=== PATIENT | female | born 1925 | race Caucasian/White ===

== ENCOUNTER 2016-06-12 21:12 | Inpatient (IN) ==
[~2016-06-12 21:12] MED LIST: ETOMIDATE 20 MG/10 ML VIAL IV ONE; ROCURONIUM 100 MG/10 ML VIAL IV ONE; SUCCINYLCHOLINE 200 MG/10 ML VIAL ONE
[2016-06-12] MEDS ORDERED: NOREPINEPHRINE 4 MG/4 ML VIAL IV ONE (21:30)
[2016-06-12] MEDS ORDERED: PANTOPRAZOLE 40 MG VIAL IV STA (21:32)
[2016-06-12] MEDS ORDERED: ONDANSETRON 4 MG/2 ML VIAL IV STA (21:32)
[2016-06-12] MEDS ORDERED: SODIUM CHLORIDE 0.9% 1,000 ML IV STA ×2 (21:32→22:30)
[2016-06-12] MEDS ORDERED: PIPERACILLIN/TAZOBACTAM 3,375 MG in SODIUM CHLORIDE 0.9% 100 ML IV STA (21:32)
[2016-06-12] MEDS: NOREPINEPHRINE 8 MG in SODIUM CHLORIDE 0.9% 242 ML IV SCH (21:38)
[2016-06-12] MEDS ORDERED: PIPERACILLIN/TAZOBACTAM 3,375 MG VIAL IV ONE (21:51)
[2016-06-12] MEDS ORDERED: PANTOPRAZOLE 40 MG VIAL IV ONE (21:52)
[2016-06-12] MEDS ORDERED: ONDANSETRON 4 MG/2 ML VIAL ONE (21:52)
[2016-06-12 22:00] LABS: ABG Base Excess -4.6 MMOL/L (-2.5-2.5); ABG HCO3 20.6 MMOL/L (20-26); ABG Oxygen Saturation 98.9 % (95-100); ABG PCO2 23.2 MM HG (35-48); ABG PH 7.484 (7.35-7.45); ABG TCO2 15.6 MMOL/L (23-27)
--- NOTE | 2016-06-12 22:07 | Emergency Department Note ---
Shruti Lopez Kasabria, am scribing for, and in the presence of, Tomy Hartmann MD 21:46. Shahbaz Lopez Charles R, MD, personally performed the services described in this documentation, ascribed by My Bahena in my presence, and it is both accurate and complete . Arrival - Arrival Chief Complaint: Abdominal / Flank Pain Stated Complaint: ABD pain ED Nursing Triage Note: Patient to room via ems. patient was transfered from [facility] for sepsis. Patient had right hip replacement last week and has been in swingbed at [facility]. Patient was sent to the ER for low blood pressure. Patient has a WBC of 20. Patient is confused. She has had 2000ml of NS and Zosyn 3.375. Mode of Arrival: Stretcher Time Seen by Provider: 06/12/16 21:31 - History of Present Illness HPI Narrative: This is a 89 y/o white female presenting to the ED as a transfer from [facility] for sepsis. Pt was on swing bed care in [place] per family request for a right hip replacement. She was sent from the ED to [facility] for low blood pressure. Pt is disoriented and confused. She has generalized abdominal pain and according to the nursing staff at the ED her last BM was watery and had bright red blood present. Pt has had three "good" bowel movements in which all of them were watery in consistency. Pt denies fever, chills, nausea, vomiting, back pain. The surgery site to her right hip seems to be well healing. Pt has a PMHx consistent with HTN, thyroid disorder, and dyslipidemia. Allergies/Adverse Reactions: Allergies Allergy/AdvReac Type Severity Reaction Status Date / Time codeine Allergy Unknown/Unable Verified 06/12/16 21:23 to obtain meperidine [From Demerol] Allergy Unknown/Unable Verified 06/12/16 21:23 to obtain Home Medications: Home Medications Medication Instructions Recorded Confirmed Type Atorvastatin [Lipitor] 10 mg PO DAILY 06/12/16 06/12/16 History Benazepril [Lotensin] 10 mg PO DAILY 06/12/16 06/12/16 History Fluconazole [Diflucan] 200 mg PO DAILY 06/12/16 06/12/16 History Fondaparinux [Arixtra] 2.5 mg SUBCUT Q24H 06/12/16 06/12/16 History Omeprazole 40 mg PO DAILY 06/12/16 06/12/16 History Review of System - Review of System ROS unobtainable: due to mental status (limited ) 12 point system: reviewed and no additional remarkable complaints except as stated - Review of System Constitutional: Present: other (low blood pressure ). Absent: chills, fever, weakness Eyes: Absent: vision change Head/Ears/Nose/Throat: Absent: nasal drainage Respiratory: Absent: cough Cardiovascular: Absent: chest pain, dyspnea on exertion Gastrointestinal: Present: abdominal pain (generalized ), diarrhea, hematochezia. Absent: nausea, vomiting Skin: Absent: rash Neurological: Present: confusion. Absent: numbness, vertigo Psychiatric: Absent: anxiety Allergic/Immunologic: Absent: facial swelling Medical,Surgical,& Family Hx - Medical History Cardio: History of: Hypertension Endocrine: History of: Dyslipidemia, Thyroid Disorder - Surgical History Orthopedic Surgeries: Surgical HX of;: Total Hip Replacement (last week) - Social History Smoking Status: Never smoker Frequency of Alcohol Use: None Type of Drug Use: None Exam Vital Signs: Vital Signs Temperature 97.7 F 06/12/16 21:13 Pulse Rate 128 H 06/12/16 21:13 Respiratory Rate 24 06/12/16 21:13 Blood Pressure 78/26 06/12/16 21:13 - General General appearance: alert, in no apparent distress, other (toxic; ill appearing ) - Head Head exam: Present: atraumatic, normocephalic, normal inspection - Eye Eye exam: Present: PERRL, EOMI, other (pale conjunctiva ). Absent: normal appearance - ENT ENT exam: Present: normal exam, normal oropharynx, mucous membranes moist, TM's normal bilaterally, normal external ear exam - Neck Neck exam: Present: normal inspection, full ROM, trachea midline. Absent: tenderness - Chest Chest inspection: Present: normal inspection, symmetric chest wall rise. Absent : tenderness - Cardiovascular Cardiovascular exam: Present: tachycardia, normal heart sounds. Absent: regular rate, normal rhythm (irregular beat ) - Abdominal Exam Abdominal exam: Present: soft. Absent: distention, tenderness, normal bowel sounds (high pitched bowel sounds ) - Extremities Exam Extremities exam: Present: normal inspection, full ROM, normal capillary refill , other (spot on the right hip post surgical that is well healing ). Absent: tenderness, pedal edema, calf tenderness - Back Exam Back exam: Present: normal inspection, full ROM. Absent: tenderness - Neurological Exam Neurological exam: Present: alert, CN II-XII intact, normal gait, reflexes normal. Absent: oriented X3 - Psychiatric Psychiatric exam: Present: normal affect, normal mood - Skin Skin exam: Present: warm, dry, intact, normal color. Absent: rash, diaphoresis Course - Consultations Consultation #1: Spoke to Dr. Morales general surgeon nutrition services aide we discussed possibilities of ischemic colitis. We decided that patient should be stabilized in ICU first with antibiotics spoke to Dr. Wynne who will admit the patient to the ICU stabilized patient Time: 22:04 Results - Labs Lab Results: I have reviewed the patients labs Labs: All results from previous facility include CT scan reviewed his results also reviewed with hospitalist and general surgeon Critical Care Time Critical Care Time: Yes Total Critical Care Time: 60 Disposition Clinical Impression: Hypotension, Acute blood loss anemia, GI bleed, Ischemic colitis, Sepsis, Status post ORIF right hip, Confusion, UTI (urinary tract infection) Case discussed with: patient, patient's family Disposition: Still a Patient Condition: Critical Time of Disposition: 22:06
--- NOTE | 2016-06-12 22:07 | EKG Report ---
Stationary ECG Study [facility] ER Test Date: 06/12/2016 10:06:25 PM Pat Name: DAMIEN BRAVO Department: Room: Gender: F Specialist Wound Care: : 1925 Requested by: Tomy Estes Order Number: [id number] Reading MD: MOISES PURVIS Intervals [place] Rate: 122 P: 72 PA: 155 QRS: 83 QRSD: 80 T: 78 QT: 321 QTc: 394 Interpretive Statements SINUS TACHYCARDIA LOW QRS VOLTAGE POSSIBLE ANTERIOR MYOCARDIAL INFARCTION, PROBABLY OLD IF PRESENT Electronically Signed On 06-18-16 10:42:04 CDT by MOISES PURVIS [email or web address]
[2016-06-12] MEDS ORDERED: metroNIDAZOLE INJ 500 MG in PREMIX 1 EACH IV STA (22:09)
[2016-06-12] MEDS ORDERED: VANCOMYCIN INJ 1,000 MG in SODIUM CHLORIDE 0.9% 250 ML IV STA (22:09)
--- NOTE | 2016-06-12 22:14 | XRay Report ---
Portable chest Date: 06/12/2016 Clinical history: Generalized abdominal pain Comparison: None Technique: Portable AP sitting chest Findings: The heart is normal in size with calcification in the aortic knob. Symmetric pleural thickening at the lung apices with atelectasis at the lung bases. Artifactual densities limit evaluation of the left midlung zone. Osteopenia with degenerative changes. Impression: Chronic appearing scarring at the lung apices with atelectasis at the lung bases. Film limited by artifactual densities. Osteopenia. PROCEDURE INTERPRETED AT [facility] DEPARTMENT OF RADIOLOGY Final Report Signed by: Dr. Mary Jc
--- NOTE | 2016-06-12 22:17 | XRay Report ---
Exam: XR abdomen 2V Date: 06/12/2016 9:34 PM Comparison: None Indication: Generalized abdominal pain Technique:[Portable supine and erect abdomen] Findings: Moderate gaseous distention of the colon with increased fecal material. Thickening of the wall of the colon with no free air. Moderate dextroscoliosis with osteopenia, degenerative changes and prior right intertrochanteric femoral fracture with post operative findings. Impression: Increased fecal material especially in the rectal location with associated moderate gaseous distention of the colon with bowel wall thickening. No free air. Osteopenia with scoliosis and prior right intertrochanteric femoral fracture. PROCEDURE INTERPRETED AT [facility] DEPARTMENT OF RADIOLOGY Final Report Signed by: Dr. Mary Jc
--- NOTE | 2016-06-12 22:40 | General Surgery Consult Note ---
Assessment and Plan (1) Toxic megacolon Status: Acute Assessment and plan: This patient is in septic shock and has toxic megacolon from colitis. She has diffuse peritonitis on exam. We will resuscitate her aggressively and I have discussed management options with the patient and the family. I think her only chance of survival is aggressive resuscitation in the operating room tonight for a total abdominal colectomy and end ileostomy. This was discussed in detail with the family and they would like to proceed. We will also place a central line in the ER for aggressive fluid resuscitation monitoring postoperatively. The ER te OR team has been called and will be here shortly. Current Visit: Yes History of Present Illness Chief complaint: Abdominal pain History of present illness: Ms. Garibay is a 89 year old female transferred to [facility] for acute onset of abdominal pain this morning. She has been rehabbing after a right intertrochanteric hip fracture and developed acute abdominal pain with hypotension. She had a lactic acid of 4 and she was in acute renal failure the outside hospital. He was transferred here for management. Her CT scan showed diffuse colitis with basically toxic megacolon. She is on pressors. Home Medications Medication Instructions Recorded Confirmed Type Atorvastatin [Lipitor] 10 mg PO DAILY 06/12/16 06/12/16 History Benazepril [Lotensin] 10 mg PO DAILY 06/12/16 06/12/16 History Fluconazole [Diflucan] 200 mg PO DAILY 06/12/16 06/12/16 History Fondaparinux [Arixtra] 2.5 mg SUBCUT Q24H 06/12/16 06/12/16 History Omeprazole 40 mg PO DAILY 06/12/16 06/12/16 History Allergies Allergy/AdvReac Type Severity Reaction Status Date / Time codeine Allergy Unknown/Unable Verified 06/12/16 21:23 to obtain meperidine [From Demerol] Allergy Unknown/Unable Verified 06/12/16 21:23 to obtain Medical,Surgical,& Family Hx - Medical History Cardio: History of: Hypertension Endocrine: History of: Dyslipidemia, Thyroid Disorder - Surgical History Orthopedic Surgeries: Surgical HX of;: Total Hip Replacement (last week) - Social History Smoking Status: Never smoker Frequency of Alcohol Use: None Type of Drug Use: None - Constitutional Constitutional: Present: as per HPI - EENT Nose, mouth and throat: Present: as per HPI - Cardiovascular Cardiovascular: Present: as per HPI - Respiratory Respiratory: Present: as per HPI - Gastrointestinal Gastrointestinal: Present: as per HPI - Genitourinary Genitourinary: Present: as per HPI - Musculoskeletal Musculoskeletal: Present: as per HPI - Neurological Neurological: Present: as per HPI - Endocrine Endocrine: Present: as per HPI Hematologic/Lymphatic: Present: as per HPI Exam - Constitutional Vitals: Period Temp Pulse Resp BP Sys/Echeverria Pulse Ox Last 24 Hr 97.7 F 128 24 78/26 General appearance: normal weight, no acute distress - Head Head exam: Present: normal inspection, normocephalic - Eye Eye exam: Present: EOMI Pupils: Present: LEON - ENT ENT exam: Present: normal exam Mouth exam: Present: normal external inspection, normal voice - Neck Neck exam: Present: normal inspection, trachea midline - Respiratory Respiratory exam: Present: clear to auscultation bilaterally. Absent: accessory muscle use, chest wall tenderness - Cardiovascular Cardiovascular exam: Present: tachycardia. Absent: irregular rhythm, systolic murmur - GI/Abdominal GI/Abdominal exam: Present: guarding, hypoactive bowel sounds, tenderness, rebound, soft. Absent: distended - Extremities Exam Extremities exam: Present: normal inspection, normal capillary refill - Back Exam Back exam: Present: normal inspection - Neurological Exam Neurological exam: Present: alert, oriented X3 Speech: Present: normal - Skin Skin exam: Present: normal color, warm Quality Measures - VTE Contraindication to Pharmacological VTE Prophylaxis: Coagulopathy Results - Diagnostic Findings Procedure: CT Abdomen and Pelvis: image reviewed by me, report reviewed by me, other (Toxic megacolon with free fluid in the abdomen)
[2016-06-12] MEDS ORDERED: SODIUM CHLORIDE 0.9% 1,800 ML IV ONE (23:04)
[2016-06-12] MEDS ORDERED: ALBUTEROL 2.5 MG/3 ML NEB RESP TX PRN (23:04)
--- NOTE | 2016-06-12 23:10 | Operative Note ---
Date of procedure: 06/12/16 Pre-op diagnosis: Hypotension with inadequate venous access Post-op diagnosis: same Procedure: Preoperative diagnosis Hypotension with inadequate venous access Postoperative diagnosis Same Procedures performed 1. Right internal jugular vein central line placement 2. Ultrasound guidance and interpretation of images Findings Right internal jugular vein was compressible and was accessed on first stick. Venous nonpulsatile blood return was obtained. Ultrasound confirmed venous placement of the wire. The catheter was placed at 15 cm the skin level. Postop chest x-ray showed no pneumothorax with catheter tip in the right atrium. Complications None apparent Specimen None Anesthesia Local 10 cc 1% lidocaine Indications Inadequate venous access with hypotension and sepsis Description of procedure Patient was placed in the Trendelenburg position in her ER bed. The neck was prepped with chlorhexidine and draped sterilely. Timeout was called. Full sterile barrier precautions were used. Ultrasound was used to identify the vascular structures in the right neck in the internal jugular vein is compressible. Local anesthetic was administered and was accessed on first stick with venous nonpulsatile blood return. Wire access was obtained to the internal jugular vein and ultrasound was repeated to confirm venous placement of the wire. The incision along the wire was opened and a dilator was placed along the wire followed by a triple-lumen catheter. The catheter was placed over the wire with a Seldinger technique and advanced 15 cm. It was sewn at the skin level dislocation. All 3 ports returned blood easily and flushed with saline. Sterile dressing was applied with a Biopatch dressing. Chest x-ray revealed good positioning of the tip of the catheter in the right atrium with no pneumothorax present. Postoperative plan to OR Implants: triple lumen catheter Anesthesia: local Surgeon / Physician: Alfonso Morales Specimens: none sent Condition: critical Disposition: no change Discharge Plan - Discharge Data Disposition: Still a Patient - Discharge Medications No Action Benazepril [Lotensin] 10 mg PO DAILY Atorvastatin [Lipitor] 10 mg PO DAILY Fluconazole [Diflucan] 200 mg PO DAILY Omeprazole 40 mg PO DAILY Fondaparinux [Arixtra] 2.5 mg SUBCUT Q24H - Follow Up or Referral - Forms/Instructions
[2016-06-12] MEDS ORDERED: VANCOMYCIN 1,000 MG VIAL ONE (23:12)
[2016-06-12 23:18] LABS: Basophils % 0.2 % (0.0-0.8); Hematocrit 31.7 VOL% (35.7-47.0); Immature Granulocytes % 0.6 %; Immature Granulocytes Absolute 0.13 #; Lymphocytes # 0.8 10*3/uL (1.4-4.0); Lymphocytes % 3.5 % (21.3-54.2); Mean Corpuscular HGB Conc 31.5 GM/DL (32-36); Mean Corpuscular Hemoglobin 29 PG (27-34); Mean Corpuscular Volume 90.8 FL (87-102); Mean Platelet Volume 9.5 FL (9.6-12.0); Monocytes # 1.6 10*3/uL (0.11-0.8); NRBC # 0.02 10*3/uL; Neutrophils % 88.7 % (38.7-73.9); Platelet Count 418 T/CUMM (130-400); Red Blood Count 3.49 MC/CUMM (3.8-5.5); Red Cell Distribution Width 15.8 % (9.3-17.3); White Blood Count 22.6 T/CUMM (4-12)
--- NOTE | 2016-06-12 23:19 | Hospitalist History & Physical ---
Assessment and Plan - Time spent with patient Time spent with patient: Greater than 30 minutes (1) Septic shock Status: Acute Assessment and plan: Admit to intensive care unit. Sepsis order set utilized Fluid bolus of 30 cc/kg. Central line placed in the right internal jugular vein by Dr. Morales in the emergency department Monitor CVP every 4 hours and bolus accordingly Continue IV fluids with lactated Ringer's Check repeat lactic acid level in 4 hours Zosyn and Flagyl ordered Follow-up cultures, blood and urine Current Visit: Yes (2) MIQUEL (acute kidney injury) Status: Acute Assessment and plan: Related to septic shock and hypotension. Volume replacement in process as well as treatment of severe sepsis with IV antibiotics and IV fluids. Monitor CVP to ensure adequate resuscitation. Repeat a.m. labs ordered Current Visit: Yes (3) Lactic acidosis Status: Acute Assessment and plan: Repeat lactic acid ordered in accordance with sepsis protocols. IV fluid boluses and maintenance fluids ordered as well Current Visit: Yes (4) Status post-operative repair of closed fracture of right hip Status: Acute Current Visit: Yes (5) Toxic megacolon Status: Acute Assessment and plan: The patient will be taken to the operating room by Dr. Morales for life-saving surgery and colon resection of the affected infected area. We feel this is her best chance at survival as IV fluids and IV antibiotics may not be enough at this point. This has been discussed at length with the patient's family members at the bedside as well as the patient. Dr. Morales and I have discussed the case and we agree that her best course would be to undergo surgery in an attempt to save her life. Aggressive fluid resuscitation and IV antibiotics has been started in the emergency department. Current Visit: Yes History of Present Illness Chief complaint: Abdominal pain and hypotension History of present illness: Ms. Garibay is a 89 year old female that was transferred to [facility] emergency department from [facility] where she was in swing bed for rehab after a right hip fracture and repair. The patient underwent surgery in [place] on June 01 for a right intertrochanteric hip fracture. This morning she began having severe abdominal pain and had low blood pressure with accompanying diarrhea and some bloody stool. The patient was sent to the emergency department where she was noted to have a leukocytosis and acute renal failure with hypotension and evidence of sepsis with colitis, diffuse abdominal pain and evidence of toxic megacolon. She was transferred to [facility] for further evaluation and treatment. I was called by the emergency room physician to evaluate the patient. I discussed the case with the emergency room physician as well as the surgeon on-call Dr. Morales. The surgeon and I evaluated the patient together in the presence of her family in the emergency department. The patient was exquisitely tender with significant rebound but no rigidity. CT scan shows significant amounts of inflammation and bowel wall thickening and the patient is currently hypotensive and tachycardic on pressors. She will likely need a surgical intervention tonight for treatment of her severe sepsis secondary to colitis and toxic megacolon. This has been discussed at length with the patient's family at the bedside as well as with the surgeon broadcast operations engineer. I am admitting the patient to our service for IV fluid resuscitation and IV antibiotics in preparation for her surgery. Her past medical history was reviewed as well as her home medications were reviewed and reconciled. The patient is a full code and her sister is her power of litigation attorney associate and surrogate decision maker. At this time the patient does have some periods of confusion, likely related to the degree of infection and hypotension, but wishes to proceed with surgery as does her family. We feel that this is her best chance at surviving. The family reports that her symptoms began within the last 24 hours and that her clinical condition has deteriorated rapidly. This is acute in onset and is worsening. The patient's pain is diffuse but worse over the left lower quadrant. Home Medications Medication Instructions Recorded Confirmed Type Atorvastatin [Lipitor] 10 mg PO DAILY 06/12/16 06/12/16 History Benazepril [Lotensin] 10 mg PO DAILY 06/12/16 06/12/16 History Fluconazole [Diflucan] 200 mg PO DAILY 06/12/16 06/12/16 History Fondaparinux [Arixtra] 2.5 mg SUBCUT Q24H 06/12/16 06/12/16 History Omeprazole 40 mg PO DAILY 06/12/16 06/12/16 History Allergies Allergy/AdvReac Type Severity Reaction Status Date / Time codeine Allergy Unknown/Unable Verified 06/12/16 21:23 to obtain meperidine [From Demerol] Allergy Unknown/Unable Verified 06/12/16 21:23 to obtain Medical,Surgical,& Family Hx - Medical History Cardio: History of: Hypertension Endocrine: History of: Dyslipidemia, Thyroid Disorder - Surgical History Orthopedic Surgeries: Surgical HX of;: Total Hip Replacement (last week) - Family History Family History: Reports;: Family Hypertension - Social History Smoking Status: Never smoker Frequency of Alcohol Use: None Type of Drug Use: None Marital Status: Lives With:: Alone Functional capacity: independent ambulation ROS unobtainable: due to mental status 12 point system: reviewed and no additional remarkable complaints except as stated - Gastrointestinal Gastrointestinal: Present: abdominal pain, bloating, loose stools Exam - Constitutional Vitals: Period Temp Pulse Resp BP Sys/Echeverria Pulse Ox Last 24 Hr 97.7 F 128 24 78/26 General appearance: severe distress Exam: Constitutional System: Severe distress. No tremulousness. Periods of confusion related to low blood pressure. Elderly female appears acutely ill and pale. Head: Normocephalic, atraumatic. Ears, Nose and Throat System: No pain or tenderness. No epistaxis or discharge Eyes System: Pupils equal, round, and reactive. Extraocular muscles intact. Neck: Supple, without adenopathy, No jugular venous distention. No thyromegaly, neck mass, or prior surgery apparent. Respiratory System: Chest clear to auscultation. Cardiovascular System: Heart with tachycardic rate and rhythm. No murmur. GI System: Abdomen very tender-worse in the left lower quadrant. bowel sounds present. No rigidity. Musculoskeletal System: Right lower extremity with postsurgical changes and some edema. Full distal pulses. Neurological System: No discernable sensory deficit. No aphasia Psychiatric System: Conversation is rational. Dermatologic: No skin lesions or breakdown or evidence of rash or trauma. Postop scar in the right hip is clean dry and intact. The patient is pale- appearing and has some mottled skin changes in her lower extremities related to hypotension. Results - Labs Lab Results: I have reviewed the past 24 hour labs Labs: Labs from [facility] were reviewed. Patient's lactic acid is 3.9. She has a leukocytosis and acute kidney injury with a creatinine of greater than 2 - Diagnostic Findings Procedure: CT Abdomen and Pelvis: image reviewed by me, report reviewed by me ( Reviewed with Dr. Morales. Evidence of bowel wall thickening and diffuse colitis) Quality Measures - VTE Deep Vein Thrombosis/Pulmonary Embolism Present on Admission: No Contraindication to Pharmacological VTE Prophylaxis: Coagulopathy Sepsis - Sepsis Classification of Sepsis: Septic Shock - Physical Exam Respiratory exam: clear to auscultation bilaterally Capillary Refill: Greater Than 3 Seconds Peripheral pulses: Radial (L): 2+, Radial (R): 2+, Dorsalis Pedis (L) PM: 2+, Dorsalis Pedis (R) PM: 2+, Posterior Tibialis (L): 2+, Posterior Tibialis (R): 2 + Cardiovascular exam: tachycardia Skin exam: cyanosis, mottled
[2016-06-12 23:22] LABS: Apearance,Urine Slightly Hazy (Clear); Bacteria,Urine Occasional /HPF (Few); Bilirubin,Urine Negative (Negative); Blood, Urine Negative (Negative); Glucose,Urine (UA) Negative (Negative); Ketones,Urine Negative (Negative); Nitrite,Urine Negative (Negative); Protein,Urine Negative; RBC,Urine 1 /HPF (0-4); Squamous Epithelial Cell,Urine Few /HPF (0-10); Transitional Epi Cells,Urine Occasional /HPF (<1); Urine Color Yellow (Yellow); Urine Specific Gravity 1.012 (1.001-1.035); Urine Urobilinogen < 2.0 EU/DL (0.2-1.0); WBC,Urine 1 /HPF (0-6)
[2016-06-12] MEDS ORDERED: LACTATED RINGERS 1,000 ML IV SCH ×2 (23:30)
[2016-06-12] MEDS ORDERED: FAMOTIDINE 20 MG/2 ML VIAL IV SCH (23:30)
[2016-06-12 23:37] LABS: Lactic Acid 2.5 MMOL/L (0.4-2.0)
[2016-06-12 23:40] LABS: Alanine Aminotransferase 10 U/L (13-56); Albumin 1.5 G/DL (3.4-5.0); Alkaline Phosphatase 54 U/L (45-117); Amylase 20 U/L (25-115); Aspartate Amino Transferase 13 U/L (0-37); Blood Urea Nitrogen 44 MG/DL (7-18); Calcium 6.8 MG/DL (8.5-10.1); Glucose 158 MG/DL (74-106); Potassium 4.1 MMOL/L (3.5-5.1); Sodium 143 MMOL/L (136-145); Total Protein 3.6 G/DL (6.4-8.3); Troponin I Only < 0.015 NG/ML (0.00-0.045)
[2016-06-13 00:26] LABS: Band Neutrophils 39 % (0-10); Lymphocytes 4 % (20-55); Platelet Estimate Increased; Segmented Neutrophils 48 % (50-85); Total Cells Counted 100
[2016-06-13 00:27] LABS: Burr Cells Few
[2016-06-13] MEDS ORDERED: PROPOFOL 1,000 MG/100 ML BOTTLE IV ONE (00:48)
--- NOTE | 2016-06-13 00:48 | Operative Note ---
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 Exploratory laparotomy 2. Right colectomy 3. Sigmoid colectomy 4. Abdominal wound VAC placement Findings There is a significant tear in the cecum which was a serosal tear with seromuscular involvement and the mucosa was pooching through this tear but there is no full-thickness perforation. The sigmoid colon was significantly inflamed and had areas of necrosis. There are diverticula in the sigmoid colon that these do not appear inflamed. The sigmoid colon was removed as well as the right colon and the patient was left in discontinuity with an abdominal wound VAC due to severe septic shock with hypotension on pressors. Complications None apparent Specimen 1. Right colon 2. 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 Pressure points were padded and SCDs were placed lower extremities. Patient already had a Cheng catheter. General endotracheal anesthesia was administered. The abdomen was prepped chlorhexidine and draped sterilely. Preoperative antibiotics were administered, and a timeout was performed. A midline celiotomy incision was made. The peritoneal cavity was entered and there was a large megacolon present. The cecum had a tear that was through the serosa and muscular layers with mucosa coming through but no full- thickness perforation. There is some murky fluid in the abdomen and cultures were taken of this. Starting in the distal sigmoid colon there was significant areas of inflammatory changes with some necrotic changes of the wall of the sigmoid colon. There were some diverticula but they do not appear acutely inflamed. The right colon was mobilized and removed because of the cecal tear and the megacolon that was present. This was transected of the transverse colon , and it was well-perfused at this location. The transverse colon colon appeared healthy and not as dilated. The descending colon was also transected an area that appeared healthy and viable and the colon was decompressed through the suture line. The sigmoid colon was then mobilized and resected down to the peritoneal reflection. This appeared very distended and there were areas of necrosis of the wall of the colon. The staple line was reinforced with a 3-0 PDS suture and the patient was left in discontinuity because she was so unstable and an abdominal wound VAC was placed. The patient was transferred to the ICU for ongoing care. Postoperative plan Plan to return to the operating room in 24-48 hours for second look laparotomy. Anesthesia: TONY Surgeon / Physician: Alfonso Morales Estimated blood loss: minimal Specimens: other (1. right colon 2. sigmoid colon) Condition: critical Disposition: ICU Results - Labs CBC & BMP: 06/12/16 23:02 06/12/16 23:02 Discharge Plan - Discharge Data Disposition: Still a Patient - Discharge Medications No Action Benazepril [Lotensin] 10 mg PO DAILY Atorvastatin [Lipitor] 10 mg PO DAILY Fluconazole [Diflucan] 200 mg PO DAILY Omeprazole 40 mg PO DAILY Fondaparinux [Arixtra] 2.5 mg SUBCUT Q24H - Follow Up or Referral - Forms/Instructions
[2016-06-13] MEDS ORDERED: SEVOFLURANE 1 UNIT/15 MINUTE INH ONE (00:51)
[2016-06-13] MEDS ORDERED: fentaNYL 100 MCG/2 ML VIAL ONE (00:51)
[2016-06-13] MEDS ORDERED: PROPOFOL 1,000 MG/100 ML BOTTLE IV SCH (01:00)
[2016-06-13] MEDS: MORPHINE 2 MG/1 ML SYRINGE IV PRN ×4 (02:11→18:17)
[2016-06-13] MEDS: PROPOFOL 1,000 MG/100 ML BOTTLE IV SCH ×2 (02:15→22:00)
[2016-06-13] MEDS: metroNIDAZOLE INJ 500 MG in PREMIX 1 EACH IV SCH ×4 (02:18→23:26)
[2016-06-13] MEDS ORDERED: MORPHINE 2 MG/1 ML SYRINGE IV ONE (02:51)
[2016-06-13] MEDS ORDERED: LACTATED RINGERS 1,000 ML IV ONE ×2 (02:52→06:16)
--- NOTE | 2016-06-13 02:54 | Event Note ---
The patient was reevaluated and reexamined in accordance with sepsis measures and protocols. She remains tachycardic with a heart rate in the 130s and hypotensive on Levophed. Sepsis - Sepsis Classification of Sepsis: Septic Shock - Physical Exam Respiratory exam: clear to auscultation bilaterally Cardiovascular exam: Tachycardic-sinus. No murmur Gastrointestinal: Surgical site is clean dry and intact. Wound VAC in place with good seal. Minimal bowel sounds. Capillary Refill: Greater Than 3 Seconds with peripheral cyanosis due to hypotension Peripheral pulses: Radial (L): 2+, Radial (R): 2+, Dorsalis Pedis (L) PM: 2+, Dorsalis Pedis (R) PM: 2+, Posterior Tibialis (L): 2+, Posterior Tibialis (R): 2 + Skin exam: cyanosis, mottled skin changes bilateral lower extremities Repeat lactic acid is pending CVP ranging between 4 and 5 Assessment and plan: Septic shock secondary to colitis with megacolon Continue IV antibiotics Bolus lactated Ringer's and normal saline Continue to check CVP after fluid boluses until CVP reaches 8-10. Follow-up lactic acid level Case discussed with nursing staff and family at the bedside Patient remains in critical condition. Critical care time 20 minutes-this was time spent at the bedside titrating her medications and ordering fluid boluses.
[2016-06-13] MEDS ORDERED: SODIUM CHLORIDE 0.9% 1,000 ML IV ONE (03:55)
[2016-06-13 04:09] LABS: ABG HCO3 14.4 MMOL/L (20-26); ABG Oxygen Saturation 99.6 % (95-100); ABG PCO2 23.2 MM HG (35-48); ABG PH 7.315 (7.35-7.45); ABG TCO2 10.8 MMOL/L (23-27); Allen Test Positive; Pt O2 Delivery Device Ventilator
[2016-06-13 04:53] LABS: Basophils % 0.3 % (0.0-0.8); Eosinophils % 0.2 % (0.00-10.9); Hematocrit 32.9 VOL% (35.7-47.0); Hemoglobin 9.9 GM/DL (12.0-16.0); Immature Granulocytes Absolute 0.06 #; Lymphocytes # 0.9 10*3/uL (1.4-4.0); Lymphocytes % 14.5 % (21.3-54.2); Mean Corpuscular HGB Conc 30.1 GM/DL (32-36); Mean Corpuscular Hemoglobin 29 PG (27-34); Mean Corpuscular Volume 94.8 FL (87-102); Mean Platelet Volume 9.9 FL (9.6-12.0); Monocytes # 0.4 10*3/uL (0.11-0.8); Monocytes % 6.1 % (1.7-12.7); NRBC # 0.06 10*3/uL; Neutrophils # 4.6 10*3/uL (1.4-7.4); Neutrophils % 77.9 % (38.7-73.9); Platelet Count 398 T/CUMM (130-400); Red Blood Count 3.47 MC/CUMM (3.8-5.5); Red Cell Distribution Width 15.9 % (9.3-17.3); White Blood Count 5.9 T/CUMM (4-12)
[2016-06-13 04:58] LABS: INR 1.2; PT Patient Result 13.2 SECS
[2016-06-13 05:22] LABS: Alanine Aminotransferase < 6 U/L (13-56); Alkaline Phosphatase 42 U/L (45-117); Aspartate Amino Transferase 12 U/L (0-37); Blood Urea Nitrogen 38 MG/DL (7-18); Calcium 6.1 MG/DL (8.5-10.1); Glucose 147 MG/DL (74-106); Magnesium 1.8 MG/DL (1.8-2.4); Osmolality,Calculated 303.4 MOS/KG (273-304); Potassium 3.8 MMOL/L (3.5-5.1); Sodium 147 MMOL/L (136-145); Total Protein 2.6 G/DL (6.4-8.3)
[2016-06-13 05:27] LABS: Band Neutrophils 18 % (0-10); Burr Cells Slight; Eosinophils 1 % (0-10); Lymphocytes 10 % (20-55); Myelocytes 1 %; Nucleated Red Blood Cells 1 (0-5); Platelet Estimate Adequate; Segmented Neutrophils 63 % (50-85); Total Cells Counted 100
[2016-06-13] MEDS: PIPERACILLIN/TAZOBACTAM 3,375 MG in SODIUM CHLORIDE 0.9% 100 ML IV SCH ×3 (06:27→22:09)
[2016-06-13] MEDS: SODIUM BICARB INJ 150 MEQ in DEXTROSE 5% 850 ML IV SCH ×3 (06:27→18:50)
--- NOTE | 2016-06-13 07:02 | XRay Report ---
XR chest 1V portable Indication: Catheter placement Comparison: 12 June 2016 at 9:49 PM Findings: The heart and mediastinum are stable in size and configuration. Right internal jugular catheter is in place and tip overlies right atrium. The pulmonary vascularity is normal in caliber. No lung infiltrates, effusions, pneumothorax or other abnormality is demonstrated. Impression: Right internal jugular catheter appears within normal limits for position. PROCEDURE INTERPRETED AT [facility] DEPARTMENT OF RADIOLOGY Final Report Signed by: Dr. Jasper Romero
--- NOTE | 2016-06-13 08:26 | Pulmonology Consult Note ---
Assessment and Plan (1) Toxic megacolon Status: Acute Assessment and plan: The patient comes in with an acute abdomen has toxic megacolon and had this resected last night. She is on the ventilator at present. Current Visit: Yes (2) Septic shock Status: Acute Assessment and plan: The patient was hypotensive and has poor urine output and is getting volume replacement. She did have an elevated lactic acid level. Current Visit: Yes (3) MIQUEL (acute kidney injury) Status: Acute Assessment and plan: Her creatinine is 1.4 at present. Current Visit: Yes (4) Status post-operative repair of closed fracture of right hip Status: Acute Assessment and plan: Patiently recently had a hip fracture that was repaired Current Visit: Yes History of Present Illness Chief complaint: Ventilator management History of present illness: Ms. Garibay is a 89 year old white female that apparently was transferred from another hospital last night because of abdominal pain. She apparently had recently had a right intertrochanteric hip fracture and had this repaired. She was at rehab when she had abdominal pain. She came in was found to have toxic megacolon and went to surgery last night. She was shocky and requiring large volumes of fluid. She had toxic megacolon and had a right colectomy and a sigmoid colectomy. She is on the ventilator postop. She has poor urine output and her blood pressure has been labile. Her oxygenation is better on the ventilator. She has no history of lung disease. Home Medications Medication Instructions Recorded Confirmed Type Atorvastatin [Lipitor] 10 mg PO DAILY 06/12/16 06/12/16 History Benazepril [Lotensin] 10 mg PO DAILY 06/12/16 06/12/16 History Fluconazole [Diflucan] 200 mg PO DAILY 06/12/16 06/12/16 History Fondaparinux [Arixtra] 2.5 mg SUBCUT Q24H 06/12/16 06/12/16 History Omeprazole 40 mg PO DAILY 06/12/16 06/12/16 History Allergies Allergy/AdvReac Type Severity Reaction Status Date / Time acetaminophen [From [place]] Allergy Confusion Verified 06/12/16 23:20 codeine Allergy Unknown/Unable Verified 06/12/16 21:23 to obtain hydrocodone [From [place]] Allergy Confusion Verified 06/12/16 23:20 meperidine [From [place]] Allergy Unknown/Unable Verified 06/12/16 21:23 to obtain ROS unobtainable: due to endotracheal tube (Unable to give any history at present) Exam (Pulmonay) H&P - Constitutional Vitals: Period Temp Pulse Resp BP Sys/Echeverria Pulse Ox Last 24 Hr 97 F-98.6 F 115-137 10-22 68-135/43-86 100-100 General appearance: no acute distress (Patient is comfortable on the ventilator) , under weight - Head Head exam: Present: normal inspection, normocephalic - Eye Eye exam: Present: EOMI. Absent: scleral icterus Pupils: Present: LEON - ENT ENT exam: Present: other (ET tube is in good position) - Neck Neck exam: Absent: lymphadenopathy, thyromegaly - Respiratory Respiratory exam: Present: clear to auscultation bilaterally. Absent: wheezes - Cardiovascular Cardiovascular exam: Present: regular rate and rhythm, tachycardia - GI/Abdominal GI/Abdominal exam: Present: other (Abdomen has been left open with a wound VAC in place.) - Extremities Exam Extremities exam: Absent: calf tenderness, edema - Neurological Exam Neurological exam: Present: other (Patient is sedated on the ventilator) - Skin Skin exam: Present: warm, dry Medical,Surgical,& Family Hx - Medical History Cardio: History of: Hypertension Neurology: No history of: Cerebrovascular Accident Endocrine: History of: Dyslipidemia, Thyroid Disorder Respiratory: No history of: Asthma Gastrointestinal: History of: GERD, Ulcerative Colitis - Surgical History Cardiac Surgeries: Patient Denies: Cardiac Catheterization Neurologic Surgeries: Patient denies: Neurologic Surgery Orthopedic Surgeries: Surgical HX of;: Total Hip Replacement (last week) - Family History Family History: Reports;: Family Hypertension - Social History Smoking Status: Never smoker Frequency of Alcohol Use: None Type of Drug Use: None Results - Labs CBC & BMP: 06/13/16 04:20 06/13/16 04:20 Labs: PO2 is 263 on 60% O2. PCO2 is 23 with a pH of 7.31 - Diagnostic Findings Procedure: Chest x-ray: image reviewed by me, report reviewed by me (Chest x- ray was clear preop.) Quality Measures - VTE Deep Vein Thrombosis/Pulmonary Embolism Present on Admission: No Contraindication to Pharmacological VTE Prophylaxis: Coagulopathy
[2016-06-13] MEDS ORDERED: ALBUMIN 5% 12.5 GM/250 ML VIAL IV ONE (08:27)
[2016-06-13] MEDS ORDERED: ALBUMIN 5% 12.5 GM in PREMIX 1 EACH IV ONE (08:45)
[2016-06-13] MEDS: ALBUMIN 25% 25 GM in PREMIX 1 EACH IV SCH ×2 (09:10→16:54)
[2016-06-13] MEDS: NOREPINEPHRINE 8 MG in SODIUM CHLORIDE 0.9% 242 ML IV SCH ×2 (09:15→13:41)
[2016-06-13] MEDS ORDERED: ENOXAPARIN 30 MG/0.3 ML SYRINGE SUBCUT SCH (09:30)
[2016-06-13] MEDS ORDERED: PHENYLEPHRINE DRIP 40 MG/250 ML PREMIX IV SCH (09:30)
--- NOTE | 2016-06-13 10:29 | Event Note ---
General Surgery Progress Note Chief complaint This patient is an 89-year-old woman who is admitted with severe septic shock with toxic colitis and peritonitis that was treated with exploratory laparotomy with right colectomy and sigmoid colectomy on 06/12/2016 Interval history The patient has been resuscitated aggressively overnight with over 3 L of IV fluids. She continues to have increasing pressor requirements and her urine output is inadequate despite aggressive resuscitation and adequate CVP. She wakes up and follows commands on the ventilator. Her white blood cell count has normalized and her hemoglobin is stable. Her creatinine is the same at 1.4. Physical exam The patient is afebrile but she is hypotensive and is on 20 mcg/kg/min of norepinephrine. She wakes up and follows commands Chest is clear Heart is tachycardic but regular Abdomen is soft and appropriately tender. Wound VAC has a full cancer with serosanguineous fluid Labs Reviewed Imaging Reviewed Assessment and plan Continue aggressive resuscitation Monitor return of kidney function Continue antibiotics I have discussed the patient's prognosis with her family today. They understand that she may not recover from this illness. They do not want to pursue renal replacement therapy if it comes to this. I think this is reasonable. We need to attempt resuscitation today now that all of the sepsis source has been controlled to see if we can get her well enough to go back to the operating room tomorrow for attempted anastomosis from her ileum to her transverse colon and end colostomy. If she worsens and appears that she would not tolerate another operation or if she develops multisystem organ failure the family would like to make her comfort care and I think this is reasonable as well. In the meantime we will continue aggressive treatment and plan for return to the OR tomorrow.
--- NOTE | 2016-06-13 12:33 | Hospitalist Progress Note ---
Assessment and Plan (1) Septic shock Status: Acute Assessment and plan: 1)septic shock- BP remains on the low side- I have added FRENCH and will replace albumin q8 h times 3 and monitor her BP response. Cultures negative so far. On broad spectrum antibiotics per Dr Morales. pH ok. Continues to receive IVF resuscitation. MIQUEL- due to sepsis. UOP low overnight, up to 40/hr in late morning. Her creatinine is only 1.4, but this is likely double her usual value. acute resp failure- due to sepsis. comfortable on vent. ABG looks ok. Nutrition- start TPN low albumin- bolusing Code status- discussed this with her family- next of kin are her brother and sister. They agree that she would want us to do all we can and if despite that she codes, she would not want ACLS. They are comfortable with the current level of care and want her to have further surgery if it would benefit her, etc. Current Visit: Yes (2) Ischemic colitis Status: Acute Current Visit: Yes (3) Toxic megacolon Status: Acute Current Visit: Yes (4) MIQUEL (acute kidney injury) Status: Acute Current Visit: Yes Hospitalist: Subjective Interval history: Mrs Garibay remains critically ill. She has very little UOP. Her SBP is in the 85 -90 range on levophed. Exam - Constitutional Vitals: Period Temp Pulse Resp BP Sys/Echeverria Pulse Ox Last 24 Hr 97 F-98.6 F 112-137 10-22 68-135/43-86 100-100 General appearance: normal weight, no acute distress - Respiratory Respiratory exam: Present: clear to auscultation bilaterally - Cardiovascular Cardiovascular exam: Present: regular rate and rhythm, tachycardia - GI/Abdominal GI/Abdominal exam: Present: hypoactive bowel sounds - Extremities Exam Extremities exam: Present: edema - Neurological Exam Neurological exam: Absent: alert (sedatd on vent) Results - Labs CBC & BMP: 06/13/16 04:20 06/13/16 04:20 Lab Results: I have reviewed the past 24 hour labs Quality Measures - VTE Deep Vein Thrombosis/Pulmonary Embolism Present on Admission: No Contraindication to Pharmacological VTE Prophylaxis: Coagulopathy
[2016-06-13] MEDS ORDERED: DEXTROSE 50% 25 GM/50 ML VIAL IV PRN (14:56)
[2016-06-13] MEDS ORDERED: GLUCAGON 1 MG VIAL IM PRN (14:56)
[2016-06-13] MEDS: DESITIN 4OZ/NYSTATIN 15 GRAM MIXTURE PASTE TOP SCH ×2 (16:01→22:10)
[2016-06-13] MEDS: FAT EMULSION 20% 250 ML IV SCH (16:35)
[2016-06-13] MEDS ORDERED: TRACE ELEMENTS (5) 1 ML, MULTIVITAMIN INJ 10 ML in AMINO ACIDS/DEXT/LYTES 5-15% 2,000 ML IV SCH (17:00)
[2016-06-13] MEDS ORDERED: DEXTROSE 10% 1,000 ML IV PRN (17:00)
[2016-06-13] MEDS: NOREPINEPHRINE 16 MG in SODIUM CHLORIDE 0.9% 234 ML IV SCH (18:11)
[2016-06-13] MEDS: INSULIN REGULAR 100 UNIT/ML SUBCUT SCH (18:18)
[2016-06-14] MEDS: INSULIN REGULAR 100 UNIT/ML SUBCUT SCH ×3 (00:14→08:32)
[2016-06-14] MEDS: ALBUMIN 25% 25 GM in PREMIX 1 EACH IV SCH (00:15)
[2016-06-14] MEDS: SODIUM BICARB INJ 150 MEQ in DEXTROSE 5% 850 ML IV SCH ×2 (01:05→07:05)
[2016-06-14] MEDS: FAMOTIDINE 20 MG/2 ML VIAL IV SCH (01:44)
[2016-06-14 02:43] LABS: ABG Base Excess 2.7 MMOL/L (-2.5-2.5); ABG HCO3 26.8 MMOL/L (20-26); ABG Oxygen Saturation 99.6 % (95-100); ABG PCO2 31.3 MM HG (35-48); ABG PH 7.517 (7.35-7.45); ABG TCO2 23.6 MMOL/L (23-27); Allen Test Positive; Pt O2 Delivery Device Ventilator
[2016-06-14] MEDS: NOREPINEPHRINE 16 MG in SODIUM CHLORIDE 0.9% 234 ML IV SCH ×2 (03:50→17:00)
[2016-06-14 04:06] LABS: Basophils % 0.2 % (0.0-0.8); Eosinophils # 0.1 10*3/uL (0.0-0.87); Eosinophils % 0.5 % (0.00-10.9); Hematocrit 25.1 VOL% (35.7-47.0); Immature Granulocytes % 10.1 %; Immature Granulocytes Absolute 1.24 #; Lymphocytes % 8.1 % (21.3-54.2); Mean Corpuscular HGB Conc 31.9 GM/DL (32-36); Mean Corpuscular Hemoglobin 29 PG (27-34); Mean Corpuscular Volume 90.3 FL (87-102); Mean Platelet Volume 10.3 FL (9.6-12.0); Monocytes # 0.6 10*3/uL (0.11-0.8); Monocytes % 4.6 % (1.7-12.7); NRBC # 0.23 10*3/uL; Neutrophils # 9.4 10*3/uL (1.4-7.4); Neutrophils % 76.5 % (38.7-73.9); Platelet Count 192 T/CUMM (130-400); Red Blood Count 2.78 MC/CUMM (3.8-5.5); Red Cell Distribution Width 15.5 % (9.3-17.3); White Blood Count 12.2 T/CUMM (4-12)
[2016-06-14 04:37] LABS: Albumin 2.4 G/DL (3.4-5.0); Bilirubin,Total 0.6 MG/DL (0.2-1.0); Calcium 6.4 MG/DL (8.5-10.1); Osmolality,Calculated 302.7 MOS/KG (273-304); Total Protein 3.5 G/DL (6.4-8.3)
[2016-06-14 04:38] LABS: Magnesium 1.8 MG/DL (1.8-2.4); Prealbumin 5.5 MG/DL (20-40)
[2016-06-14 04:58] LABS: Band Neutrophils 7 % (0-10); Eosinophils 3 % (0-10); Hypochromasia 1+; Lymphocytes 7 % (20-55); Nucleated Red Blood Cells 3 (0-5); Platelet Estimate Normal; Segmented Neutrophils 79 % (50-85); Total Cells Counted 100
[2016-06-14] MEDS: PIPERACILLIN/TAZOBACTAM 3,375 MG in SODIUM CHLORIDE 0.9% 100 ML IV SCH ×3 (05:33→21:26)
[2016-06-14] MEDS: PROPOFOL 1,000 MG/100 ML BOTTLE IV SCH (05:39)
[2016-06-14] MEDS: MORPHINE 2 MG/1 ML SYRINGE IV PRN (07:15)
[2016-06-14] MEDS ORDERED: GLUCAGON 1 MG VIAL IM PRN (07:22)
[2016-06-14] MEDS ORDERED: DEXTROSE 50% 25 GM/50 ML VIAL IV PRN (07:22)
--- NOTE | 2016-06-14 07:30 | Event Note ---
General Surgery Progress Note Chief complaint This patient is an 89-year-old woman who is admitted with severe septic shock with toxic colitis and peritonitis that was treated with exploratory laparotomy with right colectomy and sigmoid colectomy on 06/12/2016 Interval history The patient did well overnight. Her acidosis appears to have resolved. She is now urinating better. Her labs were reviewed today and her hemoglobin is down to a white blood cell count is back up to 12,000. She is weaning off her pressors. Her tachycardia has improved. Physical exam The patient is afebrile but she is hypotensive and is on 12 mcg/kg/min of norepinephrine. She wakes up and follows commands Chest is clear Heart is tachycardic but regular Abdomen is soft and appropriately tender. Wound VAC has serosanguineous fluid within it Labs Reviewed Imaging Reviewed Assessment and plan The patient overall appears to be improving. She appears well resuscitated. She will be taken back to the operating room for a second look with possible anastomosis of her ileum and a transverse colon and end colostomy. The possibility of completion colectomy and end ileostomy were also discussed with the family.
[2016-06-14] MEDS ORDERED: MAGNESIUM SULF RIDER 4 GM in PREMIX 1 EACH IV PRN (07:46)
[2016-06-14] MEDS ORDERED: POTASSIUM CHLORIDE RIDER 10 MEQ in PREMIX 1 EACH IV PRN (07:46)
[2016-06-14] MEDS ORDERED: MAGNESIUM SULF RIDER 50 ML IV ONE (07:55)
[2016-06-14] MEDS ORDERED: POTASSIUM CHLORIDE RIDER 100 ML IV ONE (07:55)
[2016-06-14] MEDS ORDERED: HYDROmorphone 2 MG/1 ML VIAL ONE (07:56)
[2016-06-14] MEDS: HYDROmorphone 2 MG/1 ML VIAL IV PRN ×2 (08:00→21:23)
[2016-06-14] MEDS: MAGNESIUM SULF RIDER 2 GM in PREMIX 1 EACH IV PRN (08:11)
[2016-06-14] MEDS: POTASSIUM CHLORIDE RIDER 20 MEQ in PREMIX 1 EACH IV PRN ×2 (08:12→10:06)
--- NOTE | 2016-06-14 08:15 | Pulmonology Progress Note ---
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 She was shocky yesterday and getting lots of volume. She is stable on the ventilator. She is arousable now and her blood pressure is much improved. Her urine output has improved nicely. She appears to be stable and will go back to surgery today for relook in her abdomen. Exam (Progress Note) - Constitutional Vitals: Period Temp Pulse Resp BP Sys/Echeverria Pulse Ox Last 24 Hr 97.8 F-99.9 F 100-116 14-29 82-129/43-75 100-100 Exam: General appearance: no acute distress (Patient is comfortable on the ventilator) , under weight. She does arouse okay. - Head Head exam: Present: normal inspection, normocephalic - Eye Eye exam: Present: EOMI. Absent: scleral icterus Pupils: Present: LEON - ENT ENT exam: Present: other (ET tube is in good position) - Neck Neck exam: Absent: lymphadenopathy, thyromegaly - Respiratory Respiratory exam: Present: clear to auscultation bilaterally. She has good breath sounds bilaterally. Absent: wheezes - Cardiovascular Cardiovascular exam: Present: regular rate and rhythm, she has no murmur or gallop rhythm. - GI/Abdominal GI/Abdominal exam: Present: other (Abdomen has been left open with a wound VAC in place.) - Extremities Exam Extremities exam: Absent: calf tenderness, edema - Neurological Exam Neurological exam: Present: other (Patient is sedated on the ventilator) - Skin Skin exam: Present: warm, dry Results - Labs CBC & BMP: 06/14/16 03:24 06/14/16 03:24 Labs: Her PO2 is 144 with a PCO2 of 31 and pH of 7.51 - Diagnostic Findings Procedure: Chest x-ray: image reviewed by me, report reviewed by me (Chest x- ray is reasonably clear.) Assessment and Plan (1) Toxic megacolon Status: Acute Assessment and plan: The patient comes in with an acute abdomen has toxic megacolon and she has a resection and still has an open abdomen. She is going back to surgery today. Current Visit: Yes (2) Septic shock Status: Acute Assessment and plan: The patient is hemodynamically stable now and her volume status is much improved. Current Visit: Yes (3) MIQUEL (acute kidney injury) Status: Acute Assessment and plan: Her creatinine is 1.3 at present. Her urine output is much improved. Current Visit: Yes (4) Status post-operative repair of closed fracture of right hip Status: Acute Assessment and plan: Patiently recently had a hip fracture that was repaired Current Visit: Yes
[2016-06-14] MEDS: metroNIDAZOLE INJ 500 MG in PREMIX 1 EACH IV SCH ×3 (08:21→23:28)
[2016-06-14] MEDS ORDERED: SODIUM CHLORIDE 0.9% 250 ML IV PRN (08:22)
--- NOTE | 2016-06-14 09:10 | XRay Report ---
XR chest 1V portable Indication: Ventilator patient Comparison: 12 June 2016 Findings: The heart and mediastinum are stable in size and configuration. Endotracheal tube is been added in tip lies at the clavicle level. NG tube is been placed and the edge of the film in the left central abdomen. Right internal jugular catheter is unchanged. The pulmonary vascularity is slightly increased with bilateral increased interstitial lung density. No other lung infiltrates, effusions, pneumothorax or other abnormality is demonstrated. Impression: Findings suggest mild cardiac decompensation. Endotracheal tube and NG tube appear in good position. PROCEDURE INTERPRETED AT [facility] DEPARTMENT OF RADIOLOGY Final Report Signed by: Dr. Jasper Romero
--- NOTE | 2016-06-14 09:42 | Hospitalist Progress Note ---
Assessment and Plan (1) Septic shock Status: Acute Assessment and plan: 1)septic shock- much improved, hopefully will get off levophed completely today. She has received albumin 3 times- will watch to see if she might need more. No positive cultures yet, on broad spectrum antibiotics. She had right colectomy and sigmoid colectomy on 06/12, and will go back to OR today to see if he can anastamose her ileum and transverse colon and end colostomy. 2)MIQUEL- UOP much improved, creatinine stable now, may begin to fall as she recovers. 3)acute resp failure- on vent due to her illness, Dr Ortiz is following 4)nutrtion- TPN started, replace Potassium and Phos today and mag. add insulin to her TPN. For now check accucheck q4h and use high intensity humalog SSI. 5)code status- DNR, but continue aggressive efforts up to the point of ACLS. Current Visit: Yes (2) Ischemic colitis Status: Acute Current Visit: Yes (3) Toxic megacolon Status: Acute Current Visit: Yes (4) MIQUEL (acute kidney injury) Status: Acute Current Visit: Yes Hospitalist: Subjective Interval history: Mrs Garibay is doing much better this morning. Her levophed was weaned last night to about 9 and the nurse continues to wean it. She is more alert and responds to voice and follows commands. Her metabolic acidosis has corrected and UOP improved dramatically with creatinine at 1.3. Exam - Constitutional Vitals: Period Temp Pulse Resp BP Sys/Echeverria Pulse Ox Last 24 Hr 97.8 F-99.9 F 100-116 11-29 94-129/43-67 100-100 General appearance: normal weight, no acute distress - Head Head exam: Present: normocephalic, atraumatic - Eye Eye exam: Present: EOMI. Absent: scleral icterus Pupils: Present: LEON - Respiratory Respiratory exam: Present: clear to auscultation bilaterally - Cardiovascular Cardiovascular exam: Present: regular rate and rhythm - GI/Abdominal GI/Abdominal exam: Present: hypoactive bowel sounds, other (open abdomen after surgery with wound vac in place- it put out 5 L overnight) - Extremities Exam Extremities exam: Present: edema (much less edema than yesterday in her face and hands, some in her LE, 2+) - Neurological Exam Neurological exam: Present: other (see above) - Skin Skin exam: Present: normal color, warm. Absent: rash Results - Labs CBC & BMP: 06/14/16 03:24 06/14/16 03:24 Lab Results: I have reviewed the past 24 hour labs Quality Measures - VTE Deep Vein Thrombosis/Pulmonary Embolism Present on Admission: No Contraindication to Pharmacological VTE Prophylaxis: Coagulopathy
[2016-06-14] MEDS: DESITIN 4OZ/NYSTATIN 15 GRAM MIXTURE PASTE TOP SCH ×2 (10:34→21:27)
[2016-06-14] MEDS: ENOXAPARIN 40 MG/0.4 ML SYRINGE SUBCUT SCH (10:36)
[2016-06-14] MEDS: INSULIN LISPRO 100 UNIT/ML SUBCUT SCH ×4 (11:03→21:12)
[2016-06-14] MEDS ORDERED: ESMOLOL 100 MG/10 ML VIAL IV ONE (12:03)
[2016-06-14] MEDS ORDERED: PHENYLEPHRINE 1 MG/10 ML SYRINGE IV ONE (12:03)
[2016-06-14] MEDS ORDERED: ROCURONIUM 100 MG/10 ML VIAL IV ONE (12:03)
[2016-06-14] MEDS ORDERED: PHENYLEPHRINE 20 MG/250 ML PREMIX IV ONE (12:03)
--- NOTE | 2016-06-14 15:00 | Operative Note ---
Date of procedure: 06/14/16 Pre-op diagnosis: Colitis with open abdomen and sepsis Post-op diagnosis: same Procedure: Preoperative diagnosis Septic shock from colitis with prior colectomy and open abdomen Postoperative diagnosis Same Procedures performed 1. Reopening of recent laparotomy 2. Completion colectomy with transverse colectomy and descending colectomy 3. Splenic flexure mobilization 4. Mushroom catheter drainage of rectum 5. End ileostomy Findings Rectal stump had blown out and was leaking stool of the abdominal cavity. This was irrigated and removed. A mushroom catheter was placed through the defect in the rectum and sewn in place as well as a pexy of the rectum to the peritoneum in the pelvis to fix it in this location. This catheter was sewn in place with a PDS suture. The transverse colon and descending colon had progressive ischemic and colitis appearing changes and the patient had become sicker throughout the course of the day making me think of the colon was a source of her persistent sepsis and I did get a second opinion from Dr. Sabillon who agreed that completion colectomy would be necessary to allow the patient to recover from this illness. An end ileostomy was performed. The ISAAC drain was placed near the rectal stump. The fascia was closed primarily with internal retention sutures and the skin was left open due to the contaminated nature of the case. Complications None apparent Specimen Transverse and descending colon Terminal ileum Blood loss 50 mL Surgeon Andrew Senior [employer] [facility] III Anesthesia GETA Indications Septic shock with colitis and prior colectomy with open abdomen Description of procedure The patient was taken to the operating room and transferred to the operating table in the supine position. Pressure points were padded and SCDs were placed lower extremities. General anesthesia was administered with the patient's existing endotracheal tube and the abdomen was prepped with Betadine and draped sterilely. Timeout was performed. The existing wound VAC was removed and the abdomen was evaluated. There is a large amount of stool near the rectal stump from a blow out of the rectal stump through the suture line and staple line. This was irrigated and suctioned out. The loose adhesions were taken down and the bowel moved out of the pelvis. The remaining colon was evaluated and had become more dusky appearing and inflamed and there is significant increased inflammatory changes in the mesentery. This appeared as though would need to be removed and in addition the patient had become increasingly hypotensive over the course of the day today with increasing pressor requirements after an initial improvement in her sepsis treatment from removal of her ischemic and dilated colon 2 days ago. I asked Dr. Sabillon coming to the operating room for a second opinion and he agreed that this needed to be removed. A completion colectomy was performed first by mobilizing the splenic flexure of the colon and in the mesentery was divided high on the colon with a bipolar device. The terminal ileum was divided in order to allow more adequate reach of the mesentery through an ileostomy defect. The ileostomy was then brought out through an incision that was made by removing a 2 cm iliamna of skin in the right lower quadrant and electrocautery was used to create a cruciate incision in the fascia. The rectus muscle was then split without dividing it and the posterior fascia was also opened with a cruciate incision. A Fred clamp was used to pull the ileum through this defect was left in place. The rectal blowout was controlled by placing a mushroom catheter through the defect and sewn in place with the PDS pursestring suture. This mushroom catheter exited through the abdominal wall through a separate stab incision in the left lower quadrant was sewn in place with a PDS suture. The rectum was also tacked to the abdominal wall dislocation using a rectopexy technique with PDS sutures. A #10 Robin drain was placed around the rectal stump and exited through an additional stab incision in the abdominal wall and sewn in place with a 3-0 nylon suture. The omentum was then placed over the small bowel and the fascia was closed with #1 Vicryl interrupted [id number] internal retention sutures in a running #1 PDS non-looped suture. The skin was left open and covered with a sterile towel. The ileostomy was then matured by dividing the ileum and using a Sabina technique to perform the ileostomy. An ileostomy appliance was placed over the ileostomy which was matured with 3-0 Vicryl sutures and the midline incision was packed with a wet-to-dry dressing. The patient was transferred to the ICU for ongoing resuscitation. Postoperative plan Continue antibiotics and initiate wound care and wound care consult Anesthesia: TONY Surgeon / Physician: Alfonso Morales Estimated blood loss: minimal Specimens: other Condition: critical Disposition: ICU Results - Labs CBC & BMP: 06/14/16 03:24 06/14/16 Unknown Discharge Plan - Discharge Medications No Action Benazepril [Lotensin] 10 mg PO DAILY Atorvastatin [Lipitor] 10 mg PO DAILY Fluconazole [Diflucan] 200 mg PO DAILY Omeprazole 40 mg PO DAILY Fondaparinux [Arixtra] 2.5 mg SUBCUT Q24H - Follow Up or Referral - Forms/Instructions
[2016-06-14] MEDS ORDERED: SODIUM CHLORIDE 0.9% 1,000 ML IV ONE (15:02)
[2016-06-14] MEDS ORDERED: SEVOFLURANE 1 UNIT/15 MINUTE INH ONE (15:02)
[2016-06-14] MEDS ORDERED: fentaNYL 100 MCG/2 ML VIAL ONE (15:02)
[2016-06-14] MEDS ORDERED: MIDAZOLAM 2 MG/2 ML VIAL ONE (15:02)
--- NOTE | 2016-06-14 15:15 | Anesthesia Post-Op ---
Anesthesia Post OP - Post Ansesthetic Evaluation Patient seen in post op: Yes Resp: other (vent) CV: other (levophed infus) Mental: other (sedated) Temp: within normal limits Qbol-Ve-Olchughfe: within normal limits Nausea and Vomiting: within normal limits Pain: within normal limits
[2016-06-14 15:52] LABS: Hematocrit 46.3 VOL% (35.7-47.0)
[2016-06-14] MEDS ORDERED: ALBUMIN 5% 12.5 GM/250 ML VIAL IV ONE (16:47)
[2016-06-14] MEDS: ALBUMIN 5% 12.5 GM in PREMIX 2 EACH IV SCH (16:50)
[2016-06-14] MEDS ORDERED: TRACE ELEMENTS (5) 1 ML, MULTIVITAMIN INJ 10 ML in AMINO ACIDS/DEXT/LYTES 5-15% 2,000 ML IV SCH (17:00)
[2016-06-14] MEDS: FAT EMULSION 20% 250 ML IV SCH (17:49)
[2016-06-14] MEDS: INSULIN REGULAR IV SCH (17:55)
[2016-06-14] MEDS: TRACE ELEMENTS IV SCH (17:55)
[2016-06-14] MEDS: [UNRECOGNIZED DRUG - OTHER] IV SCH (17:55)
[2016-06-14] MEDS: MULTIVITAMIN IV SCH (17:55)
[2016-06-15] MEDS: ALBUMIN 5% 12.5 GM in PREMIX 2 EACH IV SCH ×3 (00:11→17:00)
[2016-06-15] MEDS: INSULIN LISPRO 100 UNIT/ML SUBCUT SCH ×6 (00:40→21:06)
[2016-06-15] MEDS: HYDROmorphone 2 MG/1 ML VIAL IV PRN ×6 (00:46→23:19)
[2016-06-15] MEDS: PROPOFOL 1,000 MG/100 ML BOTTLE IV SCH (01:15)
[2016-06-15] MEDS: FAMOTIDINE 20 MG/2 ML VIAL IV SCH ×2 (03:20→18:59)
[2016-06-15 04:26] LABS: ABG Base Excess 3.1 MMOL/L (-2.5-2.5); ABG HCO3 27.2 MMOL/L (20-26); ABG Oxygen Saturation 99.1 % (95-100); ABG PCO2 39.9 MM HG (35-48); ABG PH 7.444 (7.35-7.45); ABG TCO2 24.2 MMOL/L (23-27)
[2016-06-15 04:29] LABS: Basophils # 0.1 10*3/uL (0.0-0.2); Basophils % 0.5 % (0.0-0.8); Eosinophils # 0.1 10*3/uL (0.0-0.87); Eosinophils % 0.7 % (0.00-10.9); Hematocrit 35.1 VOL% (35.7-47.0); Immature Granulocytes Absolute 1.03 #; Lymphocytes # 0.9 10*3/uL (1.4-4.0); Lymphocytes % 6.3 % (21.3-54.2); Mean Corpuscular HGB Conc 32.8 GM/DL (32-36); Mean Corpuscular Hemoglobin 29 PG (27-34); Mean Corpuscular Volume 87.5 FL (87-102); Mean Platelet Volume 10.9 FL (9.6-12.0); Monocytes # 0.6 10*3/uL (0.11-0.8); Monocytes % 4.3 % (1.7-12.7); NRBC # 0.05 10*3/uL; Neutrophils % 81.2 % (38.7-73.9); Platelet Count 106 T/CUMM (130-400); Red Blood Count 4.01 MC/CUMM (3.8-5.5); Red Cell Distribution Width 16.3 % (9.3-17.3); White Blood Count 14.8 T/CUMM (4-12)
[2016-06-15 04:56] LABS: Hemoglobin 11.5 GM/DL (12.0-16.0)
[2016-06-15 05:04] LABS: Albumin 2.2 G/DL (3.4-5.0); Calcium 6.7 MG/DL (8.5-10.1); Osmolality,Calculated 294.8 MOS/KG (273-304); Potassium 3.3 MMOL/L (3.5-5.1); Total Protein 3.2 G/DL (6.4-8.3)
[2016-06-15] MEDS: POTASSIUM CHLORIDE RIDER 20 MEQ in PREMIX 1 EACH IV PRN (05:16)
[2016-06-15 05:18] LABS: Band Neutrophils 5 % (0-10); Eosinophils 1 % (0-10); Lymphocytes 2 % (20-55); Segmented Neutrophils 88 % (50-85); Total Cells Counted 100
[2016-06-15 05:19] LABS: Hypochromasia 1+; Ovalocytes Slight; Platelet Estimate Decreased
[2016-06-15] MEDS: PIPERACILLIN/TAZOBACTAM 3,375 MG in SODIUM CHLORIDE 0.9% 100 ML IV SCH ×3 (05:36→22:30)
--- NOTE | 2016-06-15 07:50 | XRay Report ---
XR chest 1V portable Indication: Ventilator patient Comparison: 14 June 2016 Findings: The heart and mediastinum are stable in size and configuration. The lines and tubes are unchanged in position. The pulmonary vascularity is increased similar to previous. No lung infiltrates, effusions, pneumothorax or other abnormality is demonstrated. Impression: No significant change PROCEDURE INTERPRETED AT [facility] DEPARTMENT OF RADIOLOGY Final Report Signed by: Dr. Jasper Romero
--- NOTE | 2016-06-15 07:53 | Pulmonology Progress Note ---
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 She was shocky but was stabilized with fluids and pressures. She has been stable on the ventilator. She went back to surgery yesterday and had her colostomy done her abdomen is closed up mainly. She is doing well on the ventilator at present. She is still on Levophed but is alert and her blood pressure is fairly stable. We will see how she does on CPAP. Exam (Progress Note) - Constitutional Vitals: Period Temp Pulse Resp BP Sys/Echeverria Pulse Ox Last 24 Hr 97.0 F-97.7 F 78-123 10-22 63-142/37-72 100-100 Exam: General appearance: no acute distress (Patient is comfortable on the ventilator. She will respond easily.), under weight. - Head Head exam: Present: normal inspection, normocephalic - Eye Eye exam: Present: EOMI. Absent: scleral icterus Pupils: Present: LEON - ENT ENT exam: Present: other (ET tube is in good position) - Neck Neck exam: Absent: lymphadenopathy, thyromegaly - Respiratory Respiratory exam: Present: clear to auscultation bilaterally. She has good breath sounds bilaterally. Absent: wheezes - Cardiovascular Cardiovascular exam: Present: regular rate and rhythm, she has no murmur or gallop rhythm. - GI/Abdominal GI/Abdominal exam: Present: other (Abdomen is addressed and she has a colostomy in place) - Extremities Exam Extremities exam: Absent: calf tenderness, edema - Neurological Exam Neurological exam: Present: other (Patient is sedated on the ventilator) - Skin Skin exam: Present: warm, dry Results - Labs CBC & BMP: 06/15/16 04:10 06/15/16 04:10 Labs: PO2 is 147 with a PCO2 of 39 and a pH of 7.44 - Diagnostic Findings Procedure: Chest x-ray: image reviewed by me, report reviewed by me (Chest x- ray is rotated and is reasonably clear) Assessment and Plan (1) Toxic megacolon Status: Acute Assessment and plan: The patient comes in with an acute abdomen and has toxic megacolon and she has had fairly extensive surgery. Now she has a colostomy and her abdomen is better. She is getting fluids and antibiotics. She is fairly stable postop. Current Visit: Yes (2) Septic shock Status: Acute Assessment and plan: The patient is hemodynamically stable now and her volume status is much improved. She has had good urine output and her blood pressure is fair. Her oxygenation is excellent and she is not acidotic. Her renal function looks okay. Current Visit: Yes (3) MIQUEL (acute kidney injury) Status: Acute Assessment and plan: Her creatinine is down to 0.9 Current Visit: Yes (4) Status post-operative repair of closed fracture of right hip Status: Acute Assessment and plan: Patiently recently had a hip fracture that was repaired. Current Visit: Yes
[2016-06-15] MEDS: metroNIDAZOLE INJ 500 MG in PREMIX 1 EACH IV SCH ×3 (08:56→23:15)
[2016-06-15] MEDS: ENOXAPARIN 40 MG/0.4 ML SYRINGE SUBCUT SCH (09:31)
[2016-06-15] MEDS: DESITIN 4OZ/NYSTATIN 15 GRAM MIXTURE PASTE TOP SCH ×2 (09:31→21:07)
--- NOTE | 2016-06-15 10:07 | Hospitalist Progress Note ---
Assessment and Plan (1) Septic shock Status: Acute Assessment and plan: 1)septic shock- continues to improve, weaning levophed. Perhaps she will be able to come off after extubation. Albumin dosing renewed by Dr Morales. Cultures negative so far, remains on Zosyn and flagyl. She had right colectomy and sigmoid colectomy first then yesterday had ileostomy and primary closure of incision. 2)MIQUEL- resolved. creatinine now 0.9. UOP good. Her edema is improved. 3)acute resp failure- CPAP trials and hopefully extubation today. 4)nutrition- on TPN for now. may be able to start tube feeds soon as ileostomy has output, once pressors off. glucose better with insulin in the bag. replaced potassium this morning. continue SSI. 5)code status- DNR if all our aggressive efforts fail. No ACLS. 6)advanced age Current Visit: Yes (2) Ischemic colitis Status: Acute Current Visit: Yes (3) Toxic megacolon Status: Acute Current Visit: Yes (4) MIQUEL (acute kidney injury) Status: Acute Current Visit: Yes Hospitalist: Subjective Interval history: Ms Garibay is doing well this morning. Her pressor is being weaned. She is doing CPAP with plan to extubate this morning. She is alert and nods and shakes her head to questions. She is continuing to make urine and there is output in her ileostomy. Exam - Constitutional Vitals: Period Temp Pulse Resp BP Sys/Echeverria Pulse Ox Last 24 Hr 96.9 F-97.7 F 74-123 10-22 63-142/37-76 100-100 General appearance: normal weight - Eye Eye exam: Present: EOMI. Absent: scleral icterus Pupils: Present: LEON - Respiratory Respiratory exam: Present: clear to auscultation bilaterally - Cardiovascular Cardiovascular exam: Present: regular rate and rhythm - GI/Abdominal GI/Abdominal exam: Present: normal bowel sounds, soft. Absent: tenderness - Extremities Exam Extremities exam: Present: edema (dependent) - Neurological Exam Neurological exam: Present: alert - Skin Skin exam: Present: warm, dry Results - Labs CBC & BMP: 06/15/16 04:10 06/15/16 04:10 Lab Results: I have reviewed the past 24 hour labs Quality Measures - VTE Deep Vein Thrombosis/Pulmonary Embolism Present on Admission: No Contraindication to Pharmacological VTE Prophylaxis: Coagulopathy
[2016-06-15 10:21] LABS: ABG Base Excess 3.2 MMOL/L (-2.5-2.5); ABG HCO3 27.8 MMOL/L (20-26); ABG Oxygen Saturation 98.3 % (95-100); ABG PCO2 42.9 MM HG (35-48); ABG PO2 148.9 MM HG (80-95); ABG TCO2 29.2 MMOL/L (23-27)
--- NOTE | 2016-06-15 10:41 | Event Note ---
General Surgery Progress Note Chief complaint This patient is a 89-year-old woman admitted with septic shock with peritonitis and toxic megacolon treated with staged complete colectomy and end ileostomy with drainage of rectum using a mushroom catheter on 06/12/2016 and 06/14/2016 Interval history The patient had a good night last night. She had a couple hours of low urine output but she was able to be resuscitated well. She is urinating well now. Her hemoglobin responded appropriately to blood transfusion. She is still on some pressors. She is on TPN. She is about to start breathing trials. Physical exam Afebrile, vital signs are remarkable for low-grade tachycardia and hypotension on 13 g of levophed Chest is clear bilaterally Heart is tachycardic but regular with no murmurs Abdomen is soft and appropriately tender. Hypoactive bowel sounds. Midline wound is clean. Ileostomy is draining succus. Mushroom catheter has minimal drainage and ISAAC drain has large drain output is serosanguineous. The patient wakes up and follows commands Labs Reviewed Imaging Chest x-ray reviewed Assessment and plan Continue antibiotics Continue wound care and place wound care ostomy consult Do not start tube feeding until the patient is off of pressors Continue TPN Repeat labs tomorrow
[2016-06-15] MEDS: NOREPINEPHRINE 16 MG in SODIUM CHLORIDE 0.9% 234 ML IV SCH ×2 (12:57→18:57)
[2016-06-15] MEDS: FAT EMULSION 20% 250 ML IV SCH (14:30)
[2016-06-15] MEDS: TRACE ELEMENTS IV SCH (19:09)
[2016-06-15] MEDS: INSULIN REGULAR IV SCH (19:09)
[2016-06-15] MEDS: [UNRECOGNIZED DRUG - OTHER] IV SCH (19:09)
[2016-06-15] MEDS: MULTIVITAMIN IV SCH (19:09)
[2016-06-16] MEDS: INSULIN LISPRO 100 UNIT/ML SUBCUT SCH ×6 (01:15→22:53)
[2016-06-16] MEDS: ALBUMIN 5% 12.5 GM in PREMIX 2 EACH IV SCH ×3 (01:52→17:53)
[2016-06-16] MEDS: PROPOFOL 1,000 MG/100 ML BOTTLE IV SCH (01:57)
[2016-06-16] MEDS: HYDROmorphone 2 MG/1 ML VIAL IV PRN ×4 (02:37→16:49)
[2016-06-16 04:16] LABS: Basophils % 0.2 % (0.0-0.8); Eosinophils # 0.4 10*3/uL (0.0-0.87); Hematocrit 32.7 VOL% (35.7-47.0); Hemoglobin 10.3 GM/DL (12.0-16.0); Immature Granulocytes % 5.2 %; Immature Granulocytes Absolute 0.65 #; Lymphocytes % 7.6 % (21.3-54.2); Mean Corpuscular HGB Conc 31.5 GM/DL (32-36); Mean Corpuscular Hemoglobin 28 PG (27-34); Mean Corpuscular Volume 88.6 FL (87-102); Mean Platelet Volume 11.2 FL (9.6-12.0); Monocytes # 0.7 10*3/uL (0.11-0.8); Monocytes % 5.2 % (1.7-12.7); NRBC # 0.02 10*3/uL; Neutrophils # 9.8 10*3/uL (1.4-7.4); Neutrophils % 78.8 % (38.7-73.9); Platelet Count 75 T/CUMM (130-400); Red Blood Count 3.69 MC/CUMM (3.8-5.5); Red Cell Distribution Width 16.6 % (9.3-17.3); White Blood Count 12.5 T/CUMM (4-12)
[2016-06-16 05:09] LABS: Alanine Aminotransferase < 6 U/L (13-56); Alkaline Phosphatase 58 U/L (45-117); Aspartate Amino Transferase 17 U/L (0-37); Blood Urea Nitrogen 23 MG/DL (7-18); Calcium 7.2 MG/DL (8.5-10.1); Glucose 134 MG/DL (74-106); Osmolality,Calculated 293.7 MOS/KG (273-304); Potassium 3.6 MMOL/L (3.5-5.1); Sodium 145 MMOL/L (136-145); Total Protein 3.3 G/DL (6.4-8.3)
[2016-06-16] MEDS: PIPERACILLIN/TAZOBACTAM 3,375 MG in SODIUM CHLORIDE 0.9% 100 ML IV SCH (05:20)
[2016-06-16] MEDS: FAMOTIDINE 20 MG/2 ML VIAL IV SCH ×2 (05:24→17:54)
[2016-06-16 05:46] LABS: Eosinophils 2 % (0-10); Hypochromasia 1+; Lymphocytes 9 % (20-55); Metamyelocytes 3 %; Platelet Estimate Decreased; Segmented Neutrophils 78 % (50-85); Total Cells Counted 100
[2016-06-16] MEDS: POTASSIUM CHLORIDE RIDER 20 MEQ in PREMIX 1 EACH IV PRN (06:47)
[2016-06-16] MEDS: metroNIDAZOLE INJ 500 MG in PREMIX 1 EACH IV SCH ×2 (08:09→14:52)
--- NOTE | 2016-06-16 09:01 | Event Note ---
General Surgery Progress Note Chief complaint This patient is a 89-year-old woman admitted with septic shock with peritonitis and toxic megacolon treated with staged complete colectomy and end ileostomy with drainage of rectum using a mushroom catheter on 06/12/2016 and 06/14/2016 Interval history Patient was extubated yesterday. She has now been weaned off pressors. She has minimal NG tube output. Her ostomy is working well. She has minimal drainage from her bowel management system or from her rectal tube. She is afebrile. Her platelet count did drop to around 76,000. Her hemoglobin stable. White blood cell count is still elevated mildly. Physical exam Afebrile, vital signs are normal this morning Chest is clear bilaterally Heart is regular with no murmurs The abdomen is soft and appropriately tender. The midline wound is clean with no evidence of infection of necrotic tissue. The ISAAC drain bulb was full with serosanguineous fluid. The rectal drain has minimal output. The ileostomy is productive of liquid stool. The bowel management system has minimal liquid drainage. Labs Reviewed Imaging None new Assessment and plan Continue antibiotics Continue wound care once daily to the midline wound. Continue ISAAC drain and rectal drain Continue bowel management system for today We will attempt to start tube feeding and also with the patient eat as tolerated with a swallow evaluation. She needs to get up and start moving around so we will also get physical therapy to see her especially because of her prior hip fracture. I will discuss staple remover on her incision with the orthopedic surgeon on Saturday who did her operation. The patient will be started on DVT chemoprophylaxis today. Her platelet count is slightly low but her risk of venous thromboembolism is very high with her recent orthopedic surgery and now additional general surgery and immobility. We will follow her platelet count for now.
[2016-06-16] MEDS: CIPROFLOXACIN INJ 400 MG in PREMIX 1 EACH IV SCH ×2 (09:33→22:48)
[2016-06-16] MEDS: DESITIN 4OZ/NYSTATIN 15 GRAM MIXTURE PASTE TOP SCH ×2 (09:34→22:48)
--- NOTE | 2016-06-16 10:36 | Pulmonology Progress Note ---
Pulmonary - PN: Subj Interval history: 89y/o F s/p colectomy for toxic megacolon and s/p extubation yesterday. Currently doing well without any acute events overnight. Pulmonary status remains stable after extubation on minimal oxygen. Pt continues to be delirious. Levophed discontinued this AM. Exam (Progress Note) - Constitutional Vitals: Period Temp Pulse Resp BP Sys/Echeverria Pulse Ox Last 24 Hr 96.9 F-98.2 F 70-108 12-24 67-139/39-83 100-100 General appearance: normal weight, no acute distress - Head Head exam: Present: normal inspection - Eye Eye exam: Present: EOMI Pupils: Present: LEON - ENT ENT exam: Present: normal exam - Neck Neck exam: Present: normal inspection - Respiratory Respiratory exam: Present: clear to auscultation bilaterally. Absent: accessory muscle use, rales, rhonchi, wheezes - Cardiovascular Cardiovascular exam: Present: regular rate and rhythm - GI/Abdominal GI/Abdominal exam: Present: hypoactive bowel sounds, tenderness, soft. Absent: rebound - Extremities Exam Extremities exam: Present: normal inspection - Neurological Exam Neurological exam: Present: alert, altered, CN II-XII intact. Absent: motor sensory deficit - Skin Skin exam: Present: warm, dry Results - Labs CBC & BMP: 06/16/16 03:45 06/16/16 03:45 Assessment and Plan (1) Toxic megacolon Status: Acute Assessment and plan: Now s/p colectomy with non-acute abdomen, doing well. Defer management to surgery, continue antibiotics (no organisms isolated thus far). Current Visit: Yes (2) Septic shock Status: Acute Assessment and plan: Much improved, off levophed now. monitor BP. Current Visit: Yes (3) MIQUEL (acute kidney injury) Status: Acute Assessment and plan: Cr improved, trend renal function & UOP. Current Visit: Yes
--- NOTE | 2016-06-16 11:53 | Hospitalist Progress Note ---
Assessment and Plan (1) Toxic megacolon Status: Acute Assessment and plan: Impression: 1. Toxic megacolon following recent hospitalization and hip fracture repair 2. Status post surgery for above with acute respiratory failure, now resolved 3. Acute renal failure, resolved 4. Thrombocytopenia, likely due to acute illness Plan: Tube feedings will be instituted by surgery. We will continue current level of supportive care. No other changes are planned at this time. This note was completed using [employer] voice recognition software. There may be verification lead errors as a result. Current Visit: Yes Hospitalist: Subjective Interval history: Follow-up toxic megacolon, status post laparotomy. The patient appears tenuously stable. She has been extubated, and awakens to tactile stimulation. Staff reports no problems. We are going to begin some low level tube feedings today. Her symptoms apparently started quite abruptly following a hip fracture repair at [facility] in [place]. She presented with an elevated white count and numerous band forms. I wonder she had C. difficile colitis. I do not see a test for that. Exam - Constitutional Vitals: Period Temp Pulse Resp BP Sys/Echeverria Pulse Ox Last 24 Hr 96.9 F-98.2 F 70-108 12-24 67-139/39-83 100-100 Vital signs are noted above. She is afebrile Heart is regular with no murmur. She has a few scattered rhonchi. Abdomen is appropriately tender, with good output in the ileostomy. Results - Labs CBC & BMP: 06/16/16 03:45 06/16/16 03:45 Lab Results: I have reviewed the past 24 hour labs Quality Measures - VTE Deep Vein Thrombosis/Pulmonary Embolism Present on Admission: No Contraindication to Pharmacological VTE Prophylaxis: Coagulopathy
[2016-06-16] MEDS: ENOXAPARIN 40 MG/0.4 ML SYRINGE SUBCUT SCH (12:15)
[2016-06-16] MEDS: FAT EMULSION 20% 250 ML IV SCH (14:51)
[2016-06-16] MEDS: MULTIVITAMIN IV SCH (18:03)
[2016-06-16] MEDS: INSULIN REGULAR IV SCH (18:03)
[2016-06-16] MEDS: [UNRECOGNIZED DRUG - OTHER] IV SCH (18:03)
[2016-06-16] MEDS: TRACE ELEMENTS IV SCH (18:03)
[2016-06-16] MEDS: NOREPINEPHRINE 16 MG in SODIUM CHLORIDE 0.9% 234 ML IV SCH (21:50)
[2016-06-17] MEDS: metroNIDAZOLE INJ 500 MG in PREMIX 1 EACH IV SCH ×2 (00:12→06:29)
[2016-06-17] MEDS: INSULIN LISPRO 100 UNIT/ML SUBCUT SCH ×6 (00:19→22:10)
[2016-06-17] MEDS: HYDROmorphone 2 MG/1 ML VIAL IV PRN ×4 (00:28→18:29)
[2016-06-17] MEDS: ALBUMIN 5% 12.5 GM in PREMIX 2 EACH IV SCH ×3 (00:37→18:12)
[2016-06-17 03:43] LABS: Basophils % 0.2 % (0.0-0.8); Eosinophils # 0.2 10*3/uL (0.0-0.87); Eosinophils % 3.6 % (0.00-10.9); Hematocrit 29.2 VOL% (35.7-47.0); Hemoglobin 9.4 GM/DL (12.0-16.0); Immature Granulocytes Absolute 0.31 #; Lymphocytes # 0.6 10*3/uL (1.4-4.0); Lymphocytes % 9.3 % (21.3-54.2); Mean Corpuscular HGB Conc 32.2 GM/DL (32-36); Mean Corpuscular Hemoglobin 28 PG (27-34); Mean Corpuscular Volume 88.2 FL (87-102); Mean Platelet Volume 10.5 FL (9.6-12.0); Monocytes # 0.5 10*3/uL (0.11-0.8); Monocytes % 7.3 % (1.7-12.7); Neutrophils # 4.6 10*3/uL (1.4-7.4); Neutrophils % 74.6 % (38.7-73.9); Red Blood Count 3.31 MC/CUMM (3.8-5.5); Red Cell Distribution Width 16.4 % (9.3-17.3); White Blood Count 6.2 T/CUMM (4-12)
[2016-06-17 03:49] LABS: Platelet Count 76 T/CUMM (130-400)
[2016-06-17 04:29] LABS: Magnesium 1.6 MG/DL (1.8-2.4); Osmolality,Calculated 287.1 MOS/KG (273-304); Potassium 3.9 MMOL/L (3.5-5.1)
[2016-06-17 04:33] LABS: Band Neutrophils 1 % (0-10); Eosinophils 2 % (0-10); Lymphocytes 11 % (20-55); Myelocytes 2 %; Segmented Neutrophils 79 % (50-85)
[2016-06-17 04:36] LABS: Platelet Estimate Decreased; Total Cells Counted 100
[2016-06-17] MEDS: FAMOTIDINE 20 MG/2 ML VIAL IV SCH ×2 (06:27→18:21)
[2016-06-17] MEDS: MAGNESIUM SULF RIDER 2 GM in PREMIX 1 EACH IV PRN (09:20)
[2016-06-17] MEDS: POTASSIUM CHLORIDE RIDER 20 MEQ in PREMIX 1 EACH IV PRN (09:21)
[2016-06-17] MEDS: DESITIN 4OZ/NYSTATIN 15 GRAM MIXTURE PASTE TOP SCH ×2 (09:24→22:07)
[2016-06-17] MEDS: ENOXAPARIN 40 MG/0.4 ML SYRINGE SUBCUT SCH (09:30)
[2016-06-17] MEDS: CIPROFLOXACIN INJ 400 MG in PREMIX 1 EACH IV SCH (09:36)
--- NOTE | 2016-06-17 11:09 | Hospitalist Progress Note ---
Assessment and Plan (1) Toxic megacolon Status: Acute Assessment and plan: Impression: 1. Toxic megacolon following recent hospitalization and hip fracture repair 2. Status post surgery for above with acute respiratory failure, now resolved 3. Acute renal failure, resolved 4. Thrombocytopenia, likely due to acute illness Plan: Continue tube feedings. We should be able to wean TPN if she continues to tolerate enteral nutrition. We will continue current level of supportive care. No other changes are planned at this time. This note was completed using [employer] voice recognition software. There may be wood flour miller errors as a result. Current Visit: Yes Hospitalist: Subjective Interval history: Follow-up toxic megacolon status post colectomy, acute respiratory failure, acute renal failure, and thrombocytopenia. The patient is awake and conversant this morning. She is confused regarding the recent events of the past few days. She is tolerating tube feedings. She offers no complaints, except for some abdominal pain. Exam - Constitutional Vitals: Period Temp Pulse Resp BP Sys/Echeverria Pulse Ox Last 24 Hr 97.2 F-99.8 F 99-123 14-94 75-131/35-61 98-100 She is afebrile. Heart is regular with no murmur or gallop. Chest is clear anteriorly with no wheezes or rales. She has good bowel sounds. There is thin brown liquid in the ileostomy bag. Results - Labs CBC & BMP: 06/17/16 03:10 06/17/16 03:10 Lab Results: I have reviewed the past 24 hour labs Quality Measures - VTE Deep Vein Thrombosis/Pulmonary Embolism Present on Admission: No Contraindication to Pharmacological VTE Prophylaxis: Coagulopathy
--- NOTE | 2016-06-17 13:02 | Event Note ---
General Surgery Progress Note Chief complaint This patient is a 89-year-old woman admitted with septic shock with peritonitis and toxic megacolon treated with staged complete colectomy and end ileostomy with drainage of rectum using a mushroom catheter on 06/12/2016 and 06/14/2016 Interval history The patient has had a good night. She is tolerating tube feeds. They are being moved up to goal. She is not swallowing much. She is going to have a formal swallow study on Saturday. She is having good ostomy output and she is afebrile and off pressors. Her labs are fairly stable with a stable platelet count. Creatinine is normal. Has not gotten up out of bed yet. She is having a large amount of ISAAC drain output. Physical exam Afebrile, vital signs are normal this morning Chest is clear bilaterally Heart is regular with no murmurs The abdomen is soft and appropriately tender. The midline wound is clean with no evidence of infection of necrotic tissue. The ISAAC drain bulb was full with serosanguineous fluid. The rectal drain has minimal output. The ileostomy is productive of liquid stool. The bowel management system has minimal liquid drainage. Labs Reviewed Imaging None new Assessment and plan Discontinue antibiotics Continue wound care once daily to the midline wound. Continue ISAAC drain and rectal drain Discontinue BMS Advance tube feeds to goal Continue DVT chemoprophylaxis The patient can be transferred to the floor from my standpoint whenever the medical team think she is stable enough from their standpoint.
[2016-06-17] MEDS: FAT EMULSION 20% 250 ML IV SCH ×2 (15:43→16:11)
[2016-06-18] MEDS: ALBUMIN 5% 12.5 GM in PREMIX 2 EACH IV SCH ×2 (00:04→08:39)
[2016-06-18] MEDS: HYDROmorphone 2 MG/1 ML VIAL IV PRN ×3 (00:04→21:33)
[2016-06-18] MEDS: INSULIN LISPRO 100 UNIT/ML SUBCUT SCH ×6 (00:48→21:06)
[2016-06-18 04:03] LABS: Basophils % 0.3 % (0.0-0.8); Eosinophils # 0.2 10*3/uL (0.0-0.87); Eosinophils % 2.8 % (0.00-10.9); Hemoglobin 10.5 GM/DL (12.0-16.0); Immature Granulocytes % 5.5 %; Immature Granulocytes Absolute 0.37 #; Lymphocytes # 0.9 10*3/uL (1.4-4.0); Lymphocytes % 13.4 % (21.3-54.2); Mean Corpuscular HGB Conc 32.8 GM/DL (32-36); Mean Corpuscular Hemoglobin 29 PG (27-34); Mean Corpuscular Volume 86.7 FL (87-102); Monocytes # 0.8 10*3/uL (0.11-0.8); Monocytes % 12.3 % (1.7-12.7); Neutrophils # 4.4 10*3/uL (1.4-7.4); Neutrophils % 65.7 % (38.7-73.9); Platelet Count 96 T/CUMM (130-400); Red Blood Count 3.69 MC/CUMM (3.8-5.5); Red Cell Distribution Width 16.3 % (9.3-17.3); White Blood Count 6.7 T/CUMM (4-12)
[2016-06-18 04:26] LABS: Calcium 7.1 MG/DL (8.5-10.1); Osmolality,Calculated 288.4 MOS/KG (273-304); Potassium 4.3 MMOL/L (3.5-5.1)
[2016-06-18 04:28] LABS: Band Neutrophils 2 % (0-10); Eosinophils 1 % (0-10); Giant Platelets Few; Hypochromasia 1+; Lymphocytes 8 % (20-55); Platelet Estimate Decreased; Segmented Neutrophils 79 % (50-85); Total Cells Counted 100
[2016-06-18 04:40] LABS: Magnesium 2.1 MG/DL (1.8-2.4); Phosphorous 1.7 MG/DL (2.5-4.9); Prealbumin 7.9 MG/DL (20-40)
[2016-06-18] MEDS: FAMOTIDINE 20 MG/2 ML VIAL IV SCH ×2 (06:20→18:44)
[2016-06-18] MEDS: ENOXAPARIN 40 MG/0.4 ML SYRINGE SUBCUT SCH (08:39)
--- NOTE | 2016-06-18 09:21 | Pulmonology Progress Note ---
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 She was shocky but was stabilized with fluids and pressures. She has been stable on the ventilator. She went back to surgery yesterday and had her colostomy done her abdomen is closed up mainly. She was extubated and has done well over the weekend. She is still very sore however. She is not having any problems with her cough or congestion. She still has a little tachycardia at times. Her blood pressure has been stable. Her renal function is normal. She is moving to a regular room today. Exam (Progress Note) - Constitutional Vitals: Period Temp Pulse Resp BP Sys/Echeverria Pulse Ox Last 24 Hr 97.6 F-98.8 F 95-116 14-26 96-134/41-67 95-100 Exam: General appearance: no acute distress (Patient is alert and relatively comfortable lying in bed.) - Head Head exam: Present: normal inspection, normocephalic - Eye Eye exam: Present: EOMI. Absent: scleral icterus Pupils: Present: LEON - ENT ENT exam: Present: Unremarkable - Neck Neck exam: Absent: lymphadenopathy, thyromegaly - Respiratory Respiratory exam: Present: clear to auscultation bilaterally. She has good breath sounds bilaterally. She continues to move very well. - Cardiovascular Cardiovascular exam: Present: regular rate and rhythm, she has no murmur or gallop rhythm. - GI/Abdominal GI/Abdominal exam: Present: other (Abdomen is addressed and she has a colostomy in place) - Extremities Exam Extremities exam: Absent: calf tenderness, edema - Neurological Exam Neurological exam: Present: She is moving her extremities well and is quite alert. - Skin Skin exam: Present: warm, dry Results - Labs CBC & BMP: 06/18/16 03:35 06/18/16 03:35 Assessment and Plan (1) Toxic megacolon Status: Acute Assessment and plan: The patient comes in with an acute abdomen and has toxic megacolon and she has had fairly extensive surgery. Now she has a colostomy and her abdomen is better. She is getting fluids and antibiotics. She continues to do well postop. Current Visit: Yes (2) Septic shock Status: Acute Assessment and plan: The patient is hemodynamically stable now and her volume status is much improved. She is off pressors and her renal function is stable. She is tolerating her IV fluids. Current Visit: Yes (3) MIQUEL (acute kidney injury) Status: Acute Assessment and plan: Her creatinine is down to 0.9 Current Visit: Yes (4) Status post-operative repair of closed fracture of right hip Status: Acute Assessment and plan: Patiently recently had a hip fracture that was repaired. Current Visit: Yes
[2016-06-18] MEDS: DESITIN 4OZ/NYSTATIN 15 GRAM MIXTURE PASTE TOP SCH ×2 (09:47→21:06)
--- NOTE | 2016-06-18 10:18 | Pathology Report from [facility] ---
ACCESSION # : [id number] PATIENT NAME : Damien Bravo. ORDERING DR : Alfonso Morales MD CLINICAL HX: Toxic megacolon POST-OP DX: Same SPECIMEN INFO: #1 RT colon #2 Sigmoid colon GROSS DESCRIPTION: Received in formalin in two parts labeled:#1 "DAMIEN BRAVO & #1" is a right colon measuring 21.0 cm in length and up to 7.0 cm in diameter. The terminal ileum measures 4.5 x 2.2 cm. An appendix is present measuring 4.5 x 0.7 cm. The serosa is smooth and pink boyer. The mucosal surface is red boyer and somewhat edematous with a 0.3 x 0.3 cm polyp noted 7.0 cm from the distal margin and 12.5 cm from the proximal margin. No areas of perforation or other masses are grossly appreciated. Sections submitted 1A&1B-Surgical margin, 1C- Mesenteric margin, 1D-Polyp, 1E-Appendix, 1F-Ski Technician colon.#2 "DAMIEN BRAVO & #2" is a segment of colon measuring 34.0 cm in length and up to 5.5 cm in diameter. The serosa is markedly edematous and has an irregular greenish boyer appearance. No perforations or mucosal lesions are identified. Sections submitted 2A&2B-Surgical margins, 2C-Ski Technician bowel. DIAGNOSIS FOR DAMIEN BRAVO: #1 RIGHT PARTIAL HEMICOLECTOMY: Extensive mucosal necrosis with ulceration, underlying marked edema and congestion of bowel wall. Tubular adenoma. Viable tissue present in proximal and distal specimen margins.#2 SIGMOID COLON RESECTION: Mucosal necrosis with extensive ulceration, edema and congestion of bowel wall. Viable tissue present in proximal and distal specimen migrans. SERVICE DATE: 06/13/2016 REPORT DATE: 06/15/2016 PATHOLOGIST: Adam Kruse
--- NOTE | 2016-06-18 10:20 | Pathology Report from [facility] ---
ACCESSION # : [id number] PATIENT NAME : Damien Bravo ORDERING DR : Alfonso Morales MD CLINICAL HX: S/P Exploratory laparotomy for peritonitis 06/13/2016 - S/P Right colectomy and sigmoid colectomy POST-OP DX: Same SPECIMEN INFO: Terminal ileum and rest of colon GROSS DESCRIPTION: The specimen is received in formalin labeled with the patient 's name "DAMIEN BRAVO" and consists of a segment of colon measuring 49.0 x 4.7 cm. Opening the colon reveals a markedly edematous mucosal surface with no lesions or perforations appreciated. Sections submitted: A and B surgical margins, C junior sales representative colon. Received separately in the specimen container is a segment of small bowel measuring 7.5 x 3.0 cm. The mucosal surface is boyer with no lesions or perforations seen. Solar Fabrication Technician sections submitted in cassette D. DIAGNOSIS FOR DAMIEN BRAVO: TERMINAL ILEUM AND REST OF COLON: Congestion, serosal acute and chronic inflammation, edema of bowel wall. Viable tissue present in proximal and distal margins (marked acute serosal inflammation present in colon tissue/acute peritonitis). SERVICE DATE: 06/15/2016 REPORT DATE: 06/18/2016 PATHOLOGIST: Adam Kruse
--- NOTE | 2016-06-18 11:21 | Event Note ---
General Surgery Progress Note Chief complaint This patient is a 89-year-old woman admitted with septic shock with peritonitis and toxic megacolon treated with staged complete colectomy and end ileostomy with drainage of rectum using a mushroom catheter on 06/12/2016 and 06/14/2016 Interval history The patient continues to improve daily. She is tolerating her tube feeds at goal. She has been off pressors with no fever and normal white blood cell count. Physical exam Afebrile, vital signs are normal this morning Chest is clear bilaterally Heart is regular with no murmurs The abdomen is soft and appropriately tender. The midline wound is clean with no evidence of infection of necrotic tissue. The ISAAC drain bulb was full with serosanguineous fluid. The rectal drain has minimal output. The ileostomy is productive of liquid stool. Labs Reviewed Imaging None new Assessment and plan Continue wound care once daily to the midline wound. Continue ISAAC drain Clamp the rectal drain Continue tube feeding and obtain swallow evaluation today to see if the patient can swallow safely physical therapy discharge planning/placement Continue DVT chemoprophylaxis The patient can be transferred to the floor from my standpoint whenever the medical team think she is stable enough from their standpoint.
[2016-06-18] MEDS ORDERED: ALBUMIN 5% 12.5 GM in PREMIX 1 EACH IV SCH (13:00)
--- NOTE | 2016-06-18 14:52 | Hospitalist Progress Note ---
Assessment and Plan (1) Toxic megacolon Status: Acute Assessment and plan: Status post complete colectomy with end ileostomy no bowel sounds today. Ileostomy has some output. Current Visit: Yes (2) Thrombocytopenia Status: Acute Assessment and plan: Most likely due to acute illness, normal coags, improving without intervention, continue DVT prophylaxis Lovenox for now Current Visit: Yes (3) Acute posthemorrhagic anemia Status: Acute Assessment and plan: 2 units packed red blood cells transfused on June 14, 2016, hemoglobin stable at 10 Current Visit: Yes (4) Septic shock Status: Acute Assessment and plan: resolved, HL ivf Current Visit: Yes (5) MIQUEL (acute kidney injury) Status: Acute Assessment and plan: resolved with hydration Current Visit: Yes Hospitalist: Subjective Interval history: Patient has had exploratory laparotomy for toxic megacolon and had a right colectomy sigmoid colectomy and abdominal wound VAC placed. Patient then had a second surgery for reopening of recent laparotomy and I complete colectomy with the transverse colon removed and descending colon. End ileostomy Exam - Constitutional Vitals: Period Temp Pulse Resp BP Sys/Echeverria Pulse Ox Last 24 Hr 97.6 F-98.3 F 95-116 16-26 96-147/41-70 95-100 Exam: Heart Rate-[tachy] Lungs-[CTAB] GI-[diminished bs, tender Ext-[no edema] Neuro [Motor 4/5], [alert and oriented times 1] psych [normal mood and affect] General [no acute distress] Results - Labs CBC & BMP: 06/18/16 03:35 06/18/16 03:35 Lab Results: I have reviewed the past 24 hour labs Labs: Blood cultures 2 negative, urine culture negative Quality Measures - VTE Deep Vein Thrombosis/Pulmonary Embolism Present on Admission: No Contraindication to Pharmacological VTE Prophylaxis: Coagulopathy
[2016-06-18] MEDS: ATORVASTATIN 10 MG TABLET PO SCH (16:50)
[2016-06-18] MEDS: ACETAMINOPHEN 325 MG TABLET PO PRN (16:50)
[2016-06-18] MEDS: ONDANSETRON 4 MG/2 ML VIAL IV PRN (21:33)
[2016-06-19] MEDS: INSULIN LISPRO 100 UNIT/ML SUBCUT SCH ×6 (00:24→20:32)
[2016-06-19] MEDS: HYDROmorphone 2 MG/1 ML VIAL IV PRN (02:27)
[2016-06-19] MEDS: ONDANSETRON 4 MG/2 ML VIAL IV PRN (02:27)
[2016-06-19 04:33] LABS: Basophils % 0.2 % (0.0-0.8); Eosinophils # 0.2 10*3/uL (0.0-0.87); Eosinophils % 2.4 % (0.00-10.9); Hematocrit 33.4 VOL% (35.7-47.0); Hemoglobin 10.8 GM/DL (12.0-16.0); Immature Granulocytes % 5.3 %; Immature Granulocytes Absolute 0.44 #; Lymphocytes # 1.1 10*3/uL (1.4-4.0); Lymphocytes % 13.2 % (21.3-54.2); Mean Corpuscular HGB Conc 32.3 GM/DL (32-36); Mean Corpuscular Hemoglobin 28 PG (27-34); Mean Corpuscular Volume 86.8 FL (87-102); Mean Platelet Volume 11.6 FL (9.6-12.0); Monocytes # 1.3 10*3/uL (0.11-0.8); Monocytes % 15.1 % (1.7-12.7); Neutrophils # 5.3 10*3/uL (1.4-7.4); Neutrophils % 63.8 % (38.7-73.9); Platelet Count 135 T/CUMM (130-400); Red Blood Count 3.85 MC/CUMM (3.8-5.5); Red Cell Distribution Width 16.2 % (9.3-17.3); White Blood Count 8.3 T/CUMM (4-12)
[2016-06-19 05:01] LABS: Band Neutrophils 4 % (0-10); Eosinophils 3 % (0-10); Hypochromasia 1+; Lymphocytes 14 % (20-55); Metamyelocytes 1 %; Microcytosis 1+; Myelocytes 1 %; Segmented Neutrophils 64 % (50-85); Total Cells Counted 100
[2016-06-19 05:02] LABS: Platelet Estimate Adequate
[2016-06-19] MEDS: FAMOTIDINE 20 MG/2 ML VIAL IV SCH ×2 (06:46→18:35)
[2016-06-19] MEDS: ENOXAPARIN 40 MG/0.4 ML SYRINGE SUBCUT SCH (09:33)
[2016-06-19] MEDS: ATORVASTATIN 10 MG TABLET PO SCH (09:35)
[2016-06-19] MEDS: ACETAMINOPHEN 325 MG TABLET PO PRN (09:35)
[2016-06-19] MEDS: DESITIN 4OZ/NYSTATIN 15 GRAM MIXTURE PASTE TOP SCH ×2 (09:36→20:32)
--- NOTE | 2016-06-19 09:56 | Event Note ---
General Surgery Progress Note Chief complaint This patient is a 89-year-old woman admitted with septic shock with peritonitis and toxic megacolon treated with staged complete colectomy and end ileostomy with drainage of rectum using a mushroom catheter on 06/12/2016 and 06/14/2016 Interval history The patient is tolerating tube feeds but not eating adequate p.o. intake to stop tube feeding. She is urinating well. She still has a large output from her ISAAC drain. Rectal tube was not clamped yesterday. Physical exam Afebrile, vital signs are normal this morning Chest is clear bilaterally Heart is regular with no murmurs The abdomen is soft and appropriately tender. The midline wound is clean with no evidence of infection of necrotic tissue. The ISAAC drain bulb was full with serosanguineous fluid but it was slightly more cloudy today. The rectal drain has no output. The ileostomy is productive of liquid stool and it is leaking some. Labs Reviewed Imaging None new Assessment and plan Continue wound care once daily to the midline wound. Continue ISAAC drain Clamp the rectal drain Continue tube feeding and advance diet as tolerated physical therapy discharge planning/placement. I would be okay with the patient going to a stepdown facility such as an LTAC or a swing bed today Continue DVT chemoprophylaxis
--- NOTE | 2016-06-19 12:50 | Pulmonology Progress Note ---
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 She was shocky but was stabilized with fluids and pressures. She has been stable on the ventilator. She went back to surgery yesterday and had her colostomy done her abdomen is closed up mainly. She was extubated and has done well over the weekend. She was moved to a regular room yesterday and is done fairly well. She is still very sore but is starting to move around and do more activity. She is eating a little bit. She is not having any problems with her breathing. Her vital signs have been stable. Exam (Progress Note) - Constitutional Vitals: Period Temp Pulse Resp BP Sys/Echeverria Pulse Ox Last 24 Hr 96.8 F-98.4 F 94-117 17-20 98-154/51-76 94-96 Exam: General appearance: no acute distress (Patient is alert and relatively comfortable lying in bed.) - Head Head exam: Present: normal inspection, normocephalic - Eye Eye exam: Present: EOMI. Absent: scleral icterus Pupils: Present: LEON - ENT ENT exam: Present: Unremarkable, she still has an NG tube in place. - Neck Neck exam: Absent: lymphadenopathy, thyromegaly - Respiratory Respiratory exam: Present: clear to auscultation bilaterally. She has good breath sounds bilaterally. She does not have any wheezing or rales present. - Cardiovascular Cardiovascular exam: Present: regular rate and rhythm, she has no murmur or gallop rhythm. - GI/Abdominal GI/Abdominal exam: Present: other (Abdomen is addressed and she has a colostomy in place) - Extremities Exam Extremities exam: Absent: calf tenderness, edema - Neurological Exam Neurological exam: Present: She is moving her extremities well and is quite alert. - Skin Skin exam: Present: warm, dry Results - Labs CBC & BMP: 06/19/16 03:55 06/18/16 03:35 Assessment and Plan (1) Toxic megacolon Status: Acute Assessment and plan: The patient comes in with an acute abdomen and has toxic megacolon and she has had fairly extensive surgery. Now she has a colostomy and her abdomen is better. She is starting to take orally and doing better. Current Visit: Yes (2) Septic shock Status: Acute Assessment and plan: The patient is hemodynamically stable now and her volume status is much improved. She is off pressors and her renal function is stable. She is tolerating her IV fluids. She continues to do well. I will drop off for now. Thanks Current Visit: Yes (3) MIQUEL (acute kidney injury) Status: Acute Assessment and plan: Her creatinine is down to 0.9 Current Visit: Yes (4) Status post-operative repair of closed fracture of right hip Status: Acute Assessment and plan: Patiently recently had a hip fracture that was repaired. Current Visit: Yes
--- NOTE | 2016-06-19 12:53 | CT Report ---
CT head/brain wo con INDICATION: Altered mental status/confusion The total DLP is 942 mGy*cm. COMPARISON: None available Technique: Serial axial tomographic images of the brain were obtained without the use of intravenous contrast. Dose reduction: This CT exam was performed using one or more of the following dose reduction techniques: Automated exposure control, automated adjustment of the mA and/or KV according to patient size, or use of iterative reconstruction technique. Findings: Moderate generalized atrophy is noted with mild prominence of the sulci and cortical volume loss. Periventricular white matter hypodensity changes are noted bilaterally which do not demonstrate mass effect and are nonspecific but favored to represent sequela of chronic microvascular ischemia. There is no evidence of vascular territory infarct or acute intracranial hemorrhage. The jiang-white matter differentiation is generally maintained. There is no hydrocephalus. The basilar cisterns are patent. The visualized paranasal sinuses, mastoid air cells and middle ear cavities are predominantly clear. The included orbits and their contents appear within normal limits. The visualized osseous structures and overlying soft tissues of the skull and face demonstrate no acute abnormality. IMPRESSION: No acute intracranial abnormality. Generalized atrophy and periventricular white matter hypodensity changes which are nonspecific but may represent sequela of chronic microvascular ischemia. If there is clinical concern for acute infarct, MRI would be recommended. PROCEDURE INTERPRETED AT [facility] Final Report Signed by: Jaime Quiroz
--- NOTE | 2016-06-19 12:55 | XRay Report ---
Portable chest. Indication: Altered mental status. Comparison: June 15, 2016. The heart is normal in size. There is calcific plaque present within the right knob. The pulmonary vasculature is normal. There is atelectasis present at each lung base, left greater than right. There are bilateral pleural effusions, left greater than right. Right IJ catheter is in satisfactory position. Nasogastric tube is in satisfactory position. The endotracheal tube has been removed. Impression: Bilateral basilar atelectasis and pleural effusions. Some interval improvement. PROCEDURE INTERPRETED AT [facility]OLOG[facility] Final Report Signed by: Dr. Samanta Figueroa
[2016-06-19 12:59] LABS: Calcium 7.1 MG/DL (8.5-10.1); Magnesium 2.2 MG/DL (1.8-2.4); Potassium 4.5 MMOL/L (3.5-5.1)
--- NOTE | 2016-06-19 14:26 | Hospitalist Progress Note ---
Assessment and Plan (1) Toxic megacolon Status: Acute Assessment and plan: Status post complete colectomy with end ileostomy with ISAAC drain Current Visit: Yes (2) Thrombocytopenia Status: Acute Assessment and plan: plt improving Current Visit: Yes (3) Acute posthemorrhagic anemia Status: Acute Assessment and plan: hgb stable Current Visit: Yes (4) Septic shock Status: Acute Assessment and plan: resolved Current Visit: Yes (5) MIQUEL (acute kidney injury) Status: Acute Assessment and plan: putting alot out in her drain will continue gentle hydration with ns Current Visit: Yes Hospitalist: Subjective Interval history: Patient was appropriate when I was in the room. She was starting to eat a little bit more. Sister was at bedside. Today the nurse called me later and said she was having hallucinations about her . LTAC is looking into taking her. And she has multiple drains and and wounds. Exam - Constitutional Vitals: Period Temp Pulse Resp BP Sys/Echeverria Pulse Ox Last 24 Hr 96.8 F-97.8 F 94-116 18-20 98-154/51-76 94-96 Exam: Heart Rate-[regular rate and rhythm] Lungs-[CTAB] GI-[good bowel sounds ribbon lapper tender. Ileostomy putting out stool Ext-[no edema] Neuro [Motor 4/5], [alert and oriented times 1] psych [normal mood and affect] General [no acute distress] Results - Labs CBC & BMP: 06/19/16 03:55 06/19/16 03:55 Lab Results: I have reviewed the past 24 hour labs - Diagnostic Findings Procedure: Chest x-ray: report reviewed by me (Bibasilar atelectasis and pleural effusion) Quality Measures - VTE Deep Vein Thrombosis/Pulmonary Embolism Present on Admission: No Contraindication to Pharmacological VTE Prophylaxis: Coagulopathy
[2016-06-19 15:19] LABS: Apearance,Urine Slightly Hazy (Clear); Bacteria,Urine Occasional /HPF (Few); Bilirubin,Urine Negative (Negative); Blood, Urine Small mg/dL (Negative); Glucose,Urine (UA) Negative (Negative); Ketones,Urine Negative (Negative); Mucus,Urine Occasional /LPF (Occasional); Nitrite,Urine Negative (Negative); Protein,Urine 30 MG/DL; RBC,Urine 75 /HPF (0-4); Squamous Epithelial Cell,Urine Occasional /HPF (0-10); Urine Color Yellow (Yellow); Urine Specific Gravity 1.018 (1.001-1.035); Urine Urobilinogen < 2.0 EU/DL (0.2-1.0); WBC,Urine 5 /HPF (0-6)
[2016-06-19] MEDS: SODIUM CHLORIDE 0.9% 1,000 ML IV SCH (16:43)
[2016-06-20] MEDS: HYDROmorphone 2 MG/1 ML VIAL IV PRN ×3 (00:35→22:06)
[2016-06-20] MEDS: ONDANSETRON 4 MG/2 ML VIAL IV PRN (00:35)
[2016-06-20] MEDS: INSULIN LISPRO 100 UNIT/ML SUBCUT SCH ×6 (00:41→20:26)
[2016-06-20 04:16] LABS: Basophils % 0.3 % (0.0-0.8); Eosinophils # 0.2 10*3/uL (0.0-0.87); Eosinophils % 1.8 % (0.00-10.9); Hematocrit 37.1 VOL% (35.7-47.0); Immature Granulocytes % 2.3 %; Immature Granulocytes Absolute 0.29 #; Lymphocytes # 1.3 10*3/uL (1.4-4.0); Lymphocytes % 10.7 % (21.3-54.2); Mean Corpuscular HGB Conc 32.3 GM/DL (32-36); Mean Corpuscular Hemoglobin 28 PG (27-34); Mean Corpuscular Volume 86.3 FL (87-102); Mean Platelet Volume 11.6 FL (9.6-12.0); Monocytes # 1.9 10*3/uL (0.11-0.8); Monocytes % 14.9 % (1.7-12.7); Neutrophils # 8.7 10*3/uL (1.4-7.4); Platelet Count 217 T/CUMM (130-400); Red Cell Distribution Width 16.2 % (9.3-17.3); White Blood Count 12.4 T/CUMM (4-12)
[2016-06-20 04:46] LABS: Hypochromasia 1+; Microcytosis 1+; Platelet Estimate Adequate
[2016-06-20] MEDS: FAMOTIDINE 20 MG/2 ML VIAL IV SCH ×2 (06:22→17:43)
[2016-06-20] MEDS: SODIUM CHLORIDE 0.9% 1,000 ML IV SCH (06:53)
--- NOTE | 2016-06-20 07:54 | Event Note ---
General Surgery Progress Note Chief complaint This patient is a 89-year-old woman admitted with septic shock with peritonitis and toxic megacolon treated with staged complete colectomy and end ileostomy with drainage of rectum using a mushroom catheter on 06/12/2016 and 06/14/2016 Interval history No events overnight. Patient had a head CT yesterday for change in mental status that was unremarkable. She is tolerating her tube feeds but not eating much around it. We are trying to transfer her to a swing bed or [facility]. Her white count went up a little bit today but she is afebrile. Physical exam Afebrile, vital signs are normal this morning Chest is clear bilaterally Heart is regular with no murmurs The abdomen is soft and appropriately tender. The midline wound is clean with no evidence of infection of necrotic tissue. The ISAAC drain bulb was full with some cloudy serous fluid. The rectal drain has no output. The ileostomy is productive of liquid stool and is no longer leak Labs Reviewed Imaging None new Assessment and plan Continue wound care once daily to the midline wound. Continue ISAAC drain Continue tube feeding and advance diet as tolerated physical therapy Continue DVT chemoprophylaxis
[2016-06-20] MEDS: cefTRIAXone 1,000 MG in SODIUM CHLORIDE 0.9% 100 ML IV SCH (09:34)
[2016-06-20] MEDS: FUROSEMIDE 40 MG/4 ML VIAL IV SCH ×2 (09:34→16:59)
[2016-06-20] MEDS: ATORVASTATIN 10 MG TABLET PO SCH (09:35)
[2016-06-20] MEDS: DESITIN 4OZ/NYSTATIN 15 GRAM MIXTURE PASTE TOP SCH ×3 (09:35→21:43)
[2016-06-20] MEDS: ENOXAPARIN 40 MG/0.4 ML SYRINGE SUBCUT SCH (09:35)
--- NOTE | 2016-06-20 10:56 | Discharge Summary ---
Hospital Course - Hospital Course Hospital Course: Ms. Garibay is a 89 year old female that was transferred to [facility] from [facility] for septic shock. Patient recently had a right intertrochanteric hip fracture repair on June 01 and was inrehab. She developed severe abdominal pain, hypotension and bloody diarrhea. Patient had a white count on admission of 22 and had developed acute renal failure with a BUN of 44 and a creatinine of 1.4 due to hypotension. Patient had severe peritonitis on physical exam. Dr. Morales was consulted and felt that she had toxic megacolon. Patient had a right internal jugular central line placed. Patient taken to the OR and exploratory laparotomy was performed. 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 A right colectomy and sigmoid colectomy was performed and abdominal wound VAC was placed. Patient was placed on vancomycin and Zosyn. Patient remained intubated after surgery and was placed on pressors in the ICU. Dr. Ortiz was consulted to manage the vent. Patient developed complications in the rectal stump was leaking stool in her abdominal cavity. She was taken back to the operating room on June 14, 2016. She had reopening of her recent laparotomy and a complete colectomy with transverse colectomy and descending colectomy at that time. And in ileostomy was placed and a mushroom catheter drainage of the rectum was placed. Patient is septic shock improved and she was extubated and weaned off pressors. Patient was started on tube feedings. Patient has anemia and received 2 units of packed red blood cells and her hemoglobin is stabilized at 12. Her Cheng was removed today along with her NG. She is tolerating a soft diet. She still has some abdominal pain and confusion. She was weaned off of antibiotics but developed a urinary tract infection due to Cheng. I started her back on Rocephin IV cultures are pending. Chest x-ray showed bilateral pleural effusions with atelectasis. IV fluids were discontinued and she was started on IV Lasix. Her potassium will be replaced p.o. This is due to volume overload. Patient had some thrombocytopenia but this started to improve. Physical therapy is working with patient. We will transfer her to [facility] for further care and treatment. - Time spent with patient Time with patient DS: Greater than 30 minutes (60 min) Diagnosis - Discharge Diagnosis (1) Toxic megacolon Status: Acute (2) Thrombocytopenia Status: Acute (3) Acute posthemorrhagic anemia Status: Acute (4) Septic shock Status: Acute (5) MIQUEL (acute kidney injury) Status: Acute Discharge Plan - Discharge Data Disposition: Disch/Xfer-[facility] Hos Condition at Discharge: Stable Discharge Diet: other (soft diet ) Activity: resume usual activities as tolerated Hygiene: no restrictions Weight Bearing at Discharge: full weight bearing - Discharge Medications New Dextrose 50% [D50] 25 gm IV PRN PRN #0 vial PRN Reason: Hypoglycemia with IV access Furosemide Inj [Lasix Inj] 40 mg IV BID DIURETIC vial Glucagon 1 mg IM PRN PRN #0 vial PRN Reason: Hypoglycemia w/o IV access Ondansetron Inj [Zofran Inj] 4 mg IV Q4H PRN #0 vial PRN Reason: Nausea Potassium Chloride Stanley 20 meq PO DAILY #30 tablet cefTRIAXone [Rocephin] 1,000 mg IV Q24H #7 vial Acetaminophen Tab [Tylenol Tab] 325 mg PO Q4H PRN #0 tablet PRN Reason: fever, headache/body aches Insulin Lispro [HumaLOG] 0 unit SUBCUT Q4H unit Continue Atorvastatin [Lipitor] 10 mg PO DAILY Discontinued Benazepril [Lotensin] 10 mg PO DAILY Fluconazole [Diflucan] 200 mg PO DAILY Omeprazole 40 mg PO DAILY Fondaparinux [Arixtra] 2.5 mg SUBCUT Q24H - Follow Up or Referral - Forms/Instructions Exam - Constitutional Vitals: Period Temp Pulse Resp BP Sys/Echeverria Pulse Ox Last 24 Hr 97.3 F-99.2 F 95-109 18-20 105-146/51-71 94-97 General appearance: normal weight, no acute distress - Respiratory Respiratory exam: Present: clear to auscultation bilaterally, rhonchi. Absent: wheezes - Cardiovascular Cardiovascular exam: Present: regular rate and rhythm. Absent: systolic murmur - GI/Abdominal GI/Abdominal exam: Present: normal bowel sounds, tenderness, soft - Extremities Exam Extremities exam: Present: edema (anasarca worse in lower extremities than upper extremities. ) - Neurological Exam Neurological exam: Present: alert, oriented X3 - Psychiatric Psychiatric exam: Present: normal affect, normal mood Discharge Results Procedures and tests throughout hospitalization: Pending Orders 06/14/16 03:24 Red Blood Cells Leuko Red Routine 06/21/16 04:00 CBC [Comp Blood Count Auto Diff] IN AM Magnesium Routine Phosphorous Routine Prealbumin Routine 06/22/16 04:00 CBC [Comp Blood Count Auto Diff] IN AM Labs on day of discharge: Labs from last 24 hours 06/20/16 06/20/16 06/20/16 06:52 03:51 03:15 WBC 12.4 H D RBC 4.30 Hgb 12.0 Hct 37.1 MCV 86.3 L MCH 28 MCHC 32.3 RDW 16.2 Plt Count 217 D MPV 11.6 Neut % (Auto) 70.0 Lymph % (Auto) 10.7 L Johnston % (Auto) 14.9 H Eos % (Auto) 1.8 Baso % (Auto) 0.3 Neut # (Auto) 8.7 H Lymph # (Auto) 1.3 L Johnston # (Auto) 1.9 H Eos # (Auto) 0.2 Baso # (Auto) 0.0 Immature Gran % 2.3 Nucleated RBC % 0.0 Immature Gran # 0.29 Nucleated RBCs # 0.00 Platelet Estimate Adequate Hypochromasia 1+ Microcytosis 1+ Morphology Comment Sodium Potassium Chloride Carbon Dioxide Anion Gap BUN Creatinine GFR Calculation BUN/Creatinine Ratio Glucose POC Glucose 234 H 186 H Calculated Osmolality Calcium Magnesium Urine Color Urine Appearance Urine pH Ur Specific Gloster Urine Protein Urine Glucose (UA) Urine Ketones Urine Blood Urine Nitrate Urine Bilirubin Urine Urobilinogen Urine Leukocytes Urine RBC Urine WBC Ur Squamous Epith Cells Urine Bacteria Urine Mucus Ur Culture Indicated? 06/19/16 06/19/16 06/19/16 23:46 19:58 15:27 WBC RBC Hgb Hct MCV MCH MCHC RDW Plt Count MPV Neut % (Auto) Lymph % (Auto) Johnston % (Auto) Eos % (Auto) Baso % (Auto) Neut # (Auto) Lymph # (Auto) Johnston # (Auto) Eos # (Auto) Baso # (Auto) Immature Gran % Nucleated RBC % Immature Gran # Nucleated RBCs # Platelet Estimate Hypochromasia Microcytosis Morphology Comment Sodium Potassium Chloride Carbon Dioxide Anion Gap BUN Creatinine GFR Calculation BUN/Creatinine Ratio Glucose POC Glucose 110 H 252 H 193 H Calculated Osmolality Calcium Magnesium Urine Color Urine Appearance Urine pH Ur Specific Gloster Urine Protein Urine Glucose (UA) Urine Ketones Urine Blood Urine Nitrate Urine Bilirubin Urine Urobilinogen Urine Leukocytes Urine RBC Urine WBC Ur Squamous Epith Cells Urine Bacteria Urine Mucus Ur Culture Indicated? 06/19/16 06/19/16 14:50 03:55 WBC RBC Hgb Hct MCV MCH MCHC RDW Plt Count MPV Neut % (Auto) Lymph % (Auto) Johnston % (Auto) Eos % (Auto) Baso % (Auto) Neut # (Auto) Lymph # (Auto) Johnston # (Auto) Eos # (Auto) Baso # (Auto) Immature Gran % Nucleated RBC % Immature Gran # Nucleated RBCs # Platelet Estimate Hypochromasia Microcytosis Morphology Comment Sodium 143 Potassium 4.5 Chloride 111 H Carbon Dioxide 26 Anion Gap 10.5 BUN 28 H Creatinine 0.80 GFR Calculation 63 BUN/Creatinine Ratio 35.00 H Glucose 116 H POC Glucose Calculated Osmolality 291.0 Calcium 7.1 L Magnesium 2.2 Urine Color Yellow Urine Appearance Slightly hazy Urine pH 5.0 Ur Specific Gloster 1.018 Urine Protein 30 Urine Glucose (UA) Negative Urine Ketones Negative Urine Blood Small Urine Nitrate Negative Urine Bilirubin Negative Urine Urobilinogen < 2.0 H Urine Leukocytes Trace Urine RBC 75 Urine WBC 5 Ur Squamous Epith Cells Occasional Urine Bacteria Occasional Urine Mucus Occasional Ur Culture Indicated? Not indicated DS: Provider Date of admission: 06/12/16 23:04 Primary care physician: . No PCP Attending physician on admission: Cassia Larsen MD Consults: 06/13/16 00:11 Consult to Wound Care - [facility] [CONS] Routine Reason for Wound Care: Wound Care Management Consult Comment: wound vac to abdomen 06/13/16 01:00 Consult to Physician [CONS] Routine Comment: vent change management lead Provider: Sampson Ortiz Consulting Provider Notified: Yes Consult to Specialist Group: Pulmonology When should Consulting Provider be notified: In am Person Notified: Dr Ortiz Date Notified: 06/13/16 Time Notified: 07:06 Consult Notification Comment: notified of consult 06/13/16 01:47 Consult to Pastoral Services [CONS] Routine Comment: Pastoral Screen: Request Party Supply Specialist Visit Pastoral Screen Source of Request: Patient 06/13/16 10:08 Consult to Pharmacy [CONS] Routine Reason for Pharmacy Consult: Adjust Meds Renal Funct 06/13/16 11:16 Consult to Dietitian [CONS] Routine Reason for Dietitian: TPN/PPN-Initiate/Manage 06/13/16 16:53 Consult to Anesthesiology [CONS] Routine Consulting Provider: Reason for Anesthesiology: Pre-op Clearance 06/15/16 08:52 Consult to Wound Care - [facility] [CONS] Routine Reason for Wound Care: Wound Care Management Consult Comment: ostomy care/teaching 06/16/16 08:18 Consult to Dietitian [CONS] Routine Reason for Dietitian: TF-Initiate/Manage 06/16/16 08:19 PT [Consult to Physical Therapy] [CONS] Routine Reason for Physical Therapy: Evaluate and Treat Consult Comment: pt had right hip replacement 3 weeks ago, now postop colectomy 06/19/16 10:52 Consult to Case Mgmt/Social Srvs [CONS] Routine Reason for Case Mgmt/Social Srvs: LTAC Discharging clinician: Fabi Layton MD
[2016-06-20] MEDS: ACETAMINOPHEN 325 MG TABLET PO PRN (18:38)
[2016-06-21] MEDS: INSULIN LISPRO 100 UNIT/ML SUBCUT SCH ×6 (00:25→20:41)
[2016-06-21 04:34] LABS: Basophils # 0.1 10*3/uL (0.0-0.2); Basophils % 0.3 % (0.0-0.8); Hematocrit 38.4 VOL% (35.7-47.0); Hemoglobin 12.2 GM/DL (12.0-16.0); Immature Granulocytes % 1.4 %; Lymphocytes # 1.4 10*3/uL (1.4-4.0); Lymphocytes % 6.3 % (21.3-54.2); Mean Corpuscular HGB Conc 31.8 GM/DL (32-36); Mean Corpuscular Hemoglobin 28 PG (27-34); Mean Corpuscular Volume 88.1 FL (87-102); Mean Platelet Volume 11.1 FL (9.6-12.0); Monocytes # 1.3 10*3/uL (0.11-0.8); Monocytes % 5.7 % (1.7-12.7); Neutrophils % 86.3 % (38.7-73.9); Platelet Count 299 T/CUMM (130-400); Red Blood Count 4.36 MC/CUMM (3.8-5.5)
[2016-06-21 04:57] LABS: Band Neutrophils 1 % (0-10); Hypochromasia 1+; Lymphocytes 9 % (20-55); Platelet Estimate Adequate; Segmented Neutrophils 84 % (50-85); Total Cells Counted 100
[2016-06-21 04:58] LABS: Microcytosis 1+
[2016-06-21 05:29] LABS: Prealbumin 17.9 MG/DL (20-40)
[2016-06-21] MEDS: FAMOTIDINE 20 MG/2 ML VIAL IV SCH ×2 (06:52→17:17)
--- NOTE | 2016-06-21 08:13 | Event Note ---
General Surgery Progress Note Chief complaint This patient is a 89-year-old woman admitted with septic shock with peritonitis and toxic megacolon treated with staged complete colectomy and end ileostomy with drainage of rectum using a mushroom catheter on 06/12/2016 and 06/14/2016 Interval history The patient is doing okay. Her ostomy is working well and her NG tube was removed yesterday but unfortunately she is not taking enough calories on her own. Her leukocytosis has returned and her white count is 22,000 today with no obvious source of infection. Her ISAAC drain is clearing up some. Physical exam Afebrile, vital signs are normal this morning Chest is clear bilaterally Heart is regular with no murmurs The abdomen is soft and appropriately tender. The midline wound is clean with no evidence of infection of necrotic tissue. The ISAAC drain bulb was full with some cloudy serous fluid but it is little more clear than yesterday.. The rectal drain has is clamped. The ileostomy is productive of liquid stool and is no longer leaking. Labs Reviewed Imaging None new Assessment and plan Continue wound care once daily to the midline wound. Continue ISAAC drain Continue tube feeding and advance diet as tolerated physical therapy Continue DVT chemoprophylaxis I have ordered a CT scan of the abdomen and pelvis with p.o. contrast. I think we should get the results of this prior to sending the patient to [facility]. I also think we should place a Dobbhoff tube and start tube feedings back with diet as tolerated. This tube is much smaller than an NG tube and hopefully will irritate her pharynx and esophagus as much.
[2016-06-21] MEDS: FUROSEMIDE 40 MG/4 ML VIAL IV SCH (08:53)
[2016-06-21] MEDS: ATORVASTATIN 10 MG TABLET PO SCH (08:54)
[2016-06-21] MEDS: cefTRIAXone 1,000 MG in SODIUM CHLORIDE 0.9% 100 ML IV SCH (08:54)
[2016-06-21] MEDS: ENOXAPARIN 40 MG/0.4 ML SYRINGE SUBCUT SCH (08:54)
[2016-06-21] MEDS: DESITIN 4OZ/NYSTATIN 15 GRAM MIXTURE PASTE TOP SCH (08:55)
[2016-06-21] MEDS: HYDROmorphone 2 MG/1 ML VIAL IV PRN (09:50)
--- NOTE | 2016-06-21 11:26 | Hospitalist Progress Note ---
Assessment and Plan (1) Toxic megacolon Status: Acute Assessment and plan: Status post complete colectomy with end ileostomy with ISAAC drain Current Visit: Yes (2) Thrombocytopenia Status: Acute Assessment and plan: resolved Current Visit: Yes (3) Acute posthemorrhagic anemia Status: Acute Assessment and plan: hgb stable Current Visit: Yes (4) Septic shock Status: Acute Assessment and plan: lactic acid, blood cx times two, change to meropenem Current Visit: Yes (5) MIQUEL (acute kidney injury) Status: Acute Assessment and plan: resolved Current Visit: Yes (6) Leukocytosis Status: Acute Assessment and plan: repeat blood cultures, cxr atelectasis, WBC climbing, romero removed, UA positive for infection, repeat ct scan today looking for infection, change from rocephin to meropenem. No urine cultures ran. Current Visit: Yes (7) Volume overload Status: Acute Assessment and plan: decrease lasix to daily, echo, bnp Current Visit: Yes (8) Confusion Status: Acute Assessment and plan: due to low blood sugars, Discussed with GI and surgery and will pursue peg tube placement. Current Visit: Yes Hospitalist: Subjective Interval history: I have spoken with [facility] personnel director for her peer to peer. They will not pay for LTAC as I do not feel she will go back to being independent after this extensive surgery. Patient still not eating well. [facility] wants to continue hospitalization until she is ready to go to a group home. While I do not agree with their philosophy that is indeed their philosophy. Nursing homes will not accept patients with Dobbhoff tube feeding. We will consult GI for peg tube. Exam - Constitutional Vitals: Period Temp Pulse Resp BP Sys/Echeverria Pulse Ox Last 24 Hr 97.4 F-98.3 F 99-121 16-20 108-143/67-83 92-96 Exam: Heart Rate-[regular rate and rhythm] Lungs-[CTAB] GI-[good bowel sounds bone [place] tender. Ileostomy putting out stool Ext-[no edema] Neuro [Motor 4/5], [confused and sister at bedside psych [depressed mood and affect] General [no acute distress] Results - Labs CBC & BMP: 06/21/16 04:20 06/19/16 03:55 Lab Results: I have reviewed the past 24 hour labs - Diagnostic Findings Procedure: Chest x-ray: report reviewed by me (bilateral atelectasis ) Quality Measures - VTE Deep Vein Thrombosis/Pulmonary Embolism Present on Admission: No Contraindication to Pharmacological VTE Prophylaxis: Coagulopathy
--- NOTE | 2016-06-21 13:09 | CT Report ---
Referring physician: Fabi Layton EXAM: CT abdomen and pelvis without contrast DATE: June 21, 2016 COMPARISON: CT abdomen and pelvis without contrast June 12, 2016 REASON: Leukocytosis status post colectomy TECHNIQUE: Axial images of the abdomen and pelvis were obtained without the use of IV contrast. Oral contrast was administered. Coronal and sagittal reformatted images were also provided. Total DLP is 383.5 mGy*cm. FINDINGS: Lower thorax: There is mild bilateral pleural fluid. There are also opacities within both lower lung zones, mainly within the lower lobes. These opacities are most consistent with atelectasis and pulmonary edema, but superimposed pneumonia is not excluded. There is also a moderate hiatal hernia. Minimal pericardial fluid is present but may be physiologic. ABDOMEN: Liver: Unremarkable. Gallbladder and bile ducts: The gallbladder is unremarkable. No biliary duct dilatation is present. Pancreas: Unremarkable. Spleen: Unremarkable. Adrenals: There is nonspecific nodular thickening of both adrenal glands. Kidneys and ureters: No hydronephrosis is present, and no renal or ureteral calculi are seen. There is a 4.1 cm exophytic lesion at the upper pole of the left kidney. This is most consistent with a cyst, but characterization is limited by the lack of contrast. PELVIS: Bladder: The bladder is mildly distended and contains mild air. This air may be related to recent catheterization. Reproductive: The uterus and ovaries are poorly visualized. ABDOMEN AND PELVIS: Bowel: The patient is status post colectomy with an ostomy at the right lower quadrant. A suture line is seen within the pelvis, and there is appears to be residual rectum. There is circumferential wall thickening at the residual rectum, which is concerning for colitis. Neoplasm cannot be excluded in this region. There are air-fluid levels at the small bowel, which likely represents mild ileus. However, there is no evidence of high-grade bowel obstruction. Note is made of a duodenal diverticulum. Vasculature: The abdominal aorta is normal in size. There is moderate scattered calcified plaque at the arteries. Peritoneum: There is mild scattered ascites within the abdomen and pelvis and diffuse mesenteric edema. No focal fluid collection is identified within the abdomen or pelvis to suggest abscess formation, but IV contrast would provide a better evaluation for an abscess. No free air is identified. A drainage catheter is seen entering the left lower quadrant with its distal tip within the posterior aspect of the right lower quadrant. Lymph nodes: No suspicious adenopathy is seen. Abdominal/pelvic wall: There is prominent anasarca. A surgical incision site/wound is also seen at the anterior abdominal wall, and there is minimal subcutaneous air, which is likely related to an injection. Bones: There is a recent right intertrochanteric fracture with internal fixation of the right femoral neck. There is also a moderate indeterminate age compression fracture of L4 with mild retropulsion. Prominent scoliosis and multilevel degenerative change are seen at the spine, and there is a remote fracture of the right transverse process of L3. IMPRESSION: 1. The patient is status post colectomy with an ostomy at the right lower quadrant. There appears to be residual rectum which demonstrates circumferential wall thickening. This is concerning for colitis, but neoplasm cannot be excluded in this region. 2. There are air-fluid levels at the small bowel, which likely represents mild ileus. However, there is no evidence of high-grade bowel obstruction. 3. Mild bilateral pleural effusions. There are opacities within both lungs, mainly within the dependent aspects of both lower lobes. This is most consistent with pulmonary edema and atelectasis, but superimposed pneumonia is not excluded. 4. Prominent anasarca, diffuse mesenteric edema and mild scattered ascites within the abdomen and pelvis. 5. There is a surgical incision site/wound to the anterior abdominal wall. There is also mild subcutaneous air, which is likely related to an injection. A drainage catheter also enters the anterior left lower quadrant with its distal tip within the posterior aspect of the right lower quadrant. 6. Moderate hiatal hernia. 7. Left renal cyst. 8. Nonspecific nodular thickening of both adrenal glands. 9. Indeterminate age compression fracture of L4, prominent degenerative change and scoliosis at the lumbar spine and internal fixation of a recent intertrochanteric fracture of the right femur. The CT exam was performed using one or more of the following dose reduction techniques: Automated exposure control and adjustment of the mA and/or kV according to patient size. PROCEDURE INTERPRETED AT [facility] DEPARTMENT OF RADIOLOGY Final Report Signed by: Dr. Chelsea Vela
--- NOTE | 2016-06-21 13:27 | Gastrointestinal Consult Note ---
<Elicia Heaton - Last Filed: 06/21/16 13:12> Assessment and Plan (1) Failure to thrive Status: Acute Assessment and plan: 06/21-status post sepsis related to toxic megacolon with peritonitis and exploratory lap with colectomy and colostomy. Recent ST evaluation with no overt signs of aspiration recommendations of soft diet/chopped meats, however patient with no appetite and very minimal intake. CT of abdomen today shows possible mild ileus with no bowel obstruction. Discussed PEG placement as an option for optimal nutrition and family patient to discuss. Discussed with Dr. Arias and he is to evaluate later this afternoon and make further recommendations. Plan an addendum to follow by Dr. Arias Current Visit: Yes History of Present Illness Chief complaint: Failure to thrive History of present illness: Ms. Garibay is a 89 year old female who was admitted to the hospital on 418 with complaints of abdominal pain. She was found on admission to have septic shock as well as toxic megacolon from colitis with diffuse peritonitis. She was taken to surgery on 06/13 for exploratory laparotomy with right colectomy as well as sigmoid colectomy, and return to surgery on 06/14 for repeat laparotomy with complete colectomy with transverse colectomy and descending colectomy as well as end ileostomy. Since surgery, patient has slowly began to improve however she did have tube feedings initiated postoperatively. Her tube feedings were discontinued on yesterday however prior to their discontinuation she had very minimal oral intake. On she had a speech therapy bedside evaluation with no signs or symptoms of overt aspiration noted with recommendations of soft foods and chopped meats. Patient is taking and approximately 3-4 bites of food at each meal time. She is taking in some fluids however still she states she does not have an appetite. She denies any symptoms of dysphagia or odynophagia. She is to be discharged soon to a rehab facility however she cannot be accepted with a nasogastric feeding tube. She had a CT of the abdomen done this morning due to leukocytosis with only findings of status post colectomy, mild ileus with no high-grade bowel obstruction. Discussed with patient and several family members at bedside regarding possibility of PEG tube placement. All questions answered. Family and patient are to discuss further. Home Medications Medication Instructions Recorded Confirmed Type Atorvastatin [Lipitor] 10 mg PO DAILY 06/12/16 06/12/16 History Acetaminophen Tab [Tylenol Tab] 325 mg PO Q4H PRN #0 tablet 06/20/16 Rx Dextrose 50% [D50] 25 gm IV PRN PRN #0 vial 06/20/16 Rx Furosemide Inj [Lasix Inj] 40 mg IV BID DIURETIC vial 06/20/16 Rx Glucagon 1 mg IM PRN PRN #0 vial 06/20/16 Rx Insulin Lispro [HumaLOG] 0 unit SUBCUT Q4H unit 06/20/16 Rx Ondansetron Inj [Zofran Inj] 4 mg IV Q4H PRN #0 vial 06/20/16 Rx Potassium Chloride [place] 20 meq PO DAILY #30 tablet 06/20/16 Rx cefTRIAXone [Rocephin] 1,000 mg IV Q24H #7 vial 06/20/16 Rx Allergies Allergy/AdvReac Type Severity Reaction Status Date / Time acetaminophen [From [place]] Allergy Confusion Verified 06/12/16 23:20 codeine Allergy Unknown/Unable Verified 06/12/16 21:23 to obtain hydrocodone [From [place]] Allergy Confusion Verified 06/12/16 23:20 meperidine [From [place]] Allergy Unknown/Unable Verified 06/12/16 21:23 to obtain Medical,Surgical,& Family Hx - Medical History Cardio: History of: Hypertension Neurology: No history of: Cerebrovascular Accident Endocrine: History of: Dyslipidemia, Thyroid Disorder Respiratory: No history of: Asthma Gastrointestinal: History of: GERD, Ulcerative Colitis - Surgical History Cardiac Surgeries: Patient Denies: Cardiac Catheterization Neurologic Surgeries: Patient denies: Neurologic Surgery Orthopedic Surgeries: Surgical HX of;: Total Hip Replacement (last week) - Family History Family History: Reports;: Family Hypertension - Social History Smoking Status: Never smoker Frequency of Alcohol Use: None Type of Drug Use: None 12 point system: reviewed and no additional remarkable complaints except as stated - Constitutional Constitutional: Present: as per HPI - EENT Eyes: Present: as per HPI Ears: Present: as per HPI Nose, mouth and throat: Present: as per HPI - Cardiovascular Cardiovascular: Present: as per HPI - Respiratory Respiratory: Present: as per HPI - Gastrointestinal Gastrointestinal: Present: as per HPI - Genitourinary Genitourinary: Present: as per HPI - Musculoskeletal Musculoskeletal: Present: as per HPI - Neurological Neurological: Present: as per HPI - Psychiatric Psychiatric: Present: as per HPI - Endocrine Endocrine: Present: as per HPI - Hematologic/Lymphatic Hematologic/Lymphatic: Present: as per HPI Exam - Constitutional Vitals: Period Temp Pulse Resp BP Sys/Echeverria Pulse Ox Last 24 Hr 97.4 F-98.3 F 99-121 16-20 108-143/68-83 92-96 General appearance: normal weight, no acute distress - Head Head exam: Present: normal inspection, normocephalic - Eye Eye exam: Present: other (lids and conjunctiva unremarakble). Absent: scleral icterus - ENT ENT exam: Present: normal exam, normal oropharynx - Neck Neck exam: Present: normal inspection - Respiratory Respiratory exam: Present: clear to auscultation bilaterally. Absent: rales, rhonchi, wheezes - Cardiovascular Cardiovascular exam: Present: regular rate and rhythm. Absent: diastolic murmur , JVD, systolic murmur - GI/Abdominal GI/Abdominal exam: Present: normal bowel sounds, soft. Absent: ascites, distended, mass, organomegaly, tenderness - Extremities Exam Extremities exam: Present: normal inspection, full ROM - Back Exam Back exam: Present: normal inspection - Neurological Exam Neurological exam: Present: alert, oriented X3 - Psychiatric Psychiatric exam: Present: normal affect, normal mood - Skin Skin exam: Present: normal color, warm, dry Results - Labs CBC & BMP: 06/21/16 04:20 06/19/16 03:55 Lab Results: I have reviewed the past 24 hour labs - Diagnostic Findings Procedure: CT Abdomen and Pelvis: report reviewed by me Quality Measures - VTE Deep Vein Thrombosis/Pulmonary Embolism Present on Admission: No Contraindication to Pharmacological VTE Prophylaxis: Coagulopathy <Jose Arias - Last Filed: 06/21/16 14:02> History of Present Illness History of present illness: Ms. Garibay is a 89 year old female Exam - Constitutional Vitals: Period Temp Pulse Resp BP Sys/Echeverria Pulse Ox Last 24 Hr 97.4 F-98.3 F 99-121 16-20 108-143/68-83 92-96 Results - Labs CBC & BMP: 06/21/16 04:20 06/19/16 03:55
[2016-06-21] MEDS: MEROPENEM 1,000 MG in SODIUM CHLORIDE 0.9% 100 ML IV SCH ×2 (13:53→20:40)
[2016-06-21] MEDS: metroNIDAZOLE INJ 500 MG in PREMIX 1 EACH IV SCH ×2 (14:22→22:49)
--- NOTE | 2016-06-21 17:43 | ECHO Report ---
Uyen Garibay Exam Date: 06/21/2016 15:04 Referring Physician: Technologist: Jojo Aleman Age: 89 Ht (in): 52 Wt (lb): 142 Gender: F Exam Location: [facility] Echo Indications: septic shock, confusion, thrombocytopenia, anemia, MIQUEL, leukocytosis, volume overload BP: / HR: Rhythm: Sinus Technical Quality: IMPRESSIONS Mild concentric left ventricular hypertrophy with diastolic dysfunction. Left ventricular ejection fraction is estimated at >65 %. Mild atrial enlargement in apical view (elongated LA). Mild mitral valve regurgitation. Mild aortic valve sclerosis. Mild tricuspid valve regurgitation. Tricuspid regurgitation velocities suggest a PAP of 16.6 mmHg + RAP. +left Pleural effusion. MEASUREMENTS (Male / Female) Normal Values 2D ECHO LV Diastolic Diameter PLAX 2.8 cm 4.2 - 5.9 / 3.9 - 5.3 cm LV Systolic Diameter PLAX 1.8 cm LV Fractional Shortening PLAX 35.5 % IVS Diastolic Thickness 1.8 cm 0.6 - 1.0 / 0.6 - 0.9 cm LVPW Diastolic Thickness 1.1 cm 0.6 - 1.0 / 0.6 - 0.9 cm RV Internal Dim ED PLAX 2.0 cm Aortic Root Diameter 2.7 cm LA Systolic Diameter LX 3.1 cm 3.0 - 4.0 / 2.7 - 3.8 cm DOPPLER TR Peak Velocity 204.0 cm/s TR Peak Gradient 16.6 mmHg FINDINGS Left Ventricle Normal left ventricular cavity size. Mild concentric left ventricular hypertrophy with diastolic dysfunction. Left ventricular ejection fraction is estimated at >65 %. Right Ventricle Normal right ventricular size. Right Atrium Normal right atrial size. Left Atrium Mild atrial enlargement in apical view (elongated LA). Mitral Valve Mild mitral valve sclerosis. Mild mitral valve regurgitation. Aortic Valve Mild aortic valve sclerosis. Tricuspid Valve Morphologically normal tricuspid valve. Mild tricuspid valve regurgitation. Tricuspid regurgitation velocities suggest a PAP of 16.6 mmHg + RAP. Pulmonic Valve Pulmonic valve not well visualized. Pericardium No pericardial effusion. +Pleural effusion. Aorta Normal size aortic root and proximal ascending aorta. Layton Guo MD (Electronically Signed) Final Date: 21 June 2016 17:42
[2016-06-22] MEDS: INSULIN LISPRO 100 UNIT/ML SUBCUT SCH ×7 (00:58→23:22)
[2016-06-22] MEDS: HYDROmorphone 2 MG/1 ML VIAL IV PRN (01:17)
[2016-06-22] MEDS: MEROPENEM 1,000 MG in SODIUM CHLORIDE 0.9% 100 ML IV SCH ×3 (04:01→20:30)
[2016-06-22 04:30] LABS: Basophils % 0.3 % (0.0-0.8); Eosinophils # 0.1 10*3/uL (0.0-0.87); Eosinophils % 0.5 % (0.00-10.9); Hematocrit 32.1 VOL% (35.7-47.0); Hemoglobin 10.3 GM/DL (12.0-16.0); Immature Granulocytes % 1.4 %; Lymphocytes # 1.3 10*3/uL (1.4-4.0); Lymphocytes % 9.1 % (21.3-54.2); Mean Corpuscular HGB Conc 32.1 GM/DL (32-36); Mean Corpuscular Hemoglobin 28 PG (27-34); Mean Corpuscular Volume 88.2 FL (87-102); Mean Platelet Volume 10.9 FL (9.6-12.0); Monocytes # 1.4 10*3/uL (0.11-0.8); Monocytes % 9.9 % (1.7-12.7); Neutrophils # 11.4 10*3/uL (1.4-7.4); Neutrophils % 78.8 % (38.7-73.9); Platelet Count 317 T/CUMM (130-400); Red Blood Count 3.64 MC/CUMM (3.8-5.5); Red Cell Distribution Width 15.8 % (9.3-17.3); White Blood Count 14.5 T/CUMM (4-12)
[2016-06-22 05:03] LABS: Osmolality,Calculated 292.8 MOS/KG (273-304)
[2016-06-22] MEDS: FAMOTIDINE 20 MG/2 ML VIAL IV SCH ×2 (07:30→18:14)
[2016-06-22] MEDS: metroNIDAZOLE INJ 500 MG in PREMIX 1 EACH IV SCH ×3 (07:35→21:20)
--- NOTE | 2016-06-22 09:25 | Gastrointestinal Progress Note ---
Assessment and Plan (1) Failure to thrive Status: Acute Assessment and plan: 06/22-Will hold off on PEG placement at this time. Reevaluate on Saturday. Hold NPO saturday night tentatively in case family decide to proceed. Plan and addendum to follow by DR Arias. 06/21-status post sepsis related to toxic megacolon with peritonitis and exploratory lap with colectomy and colostomy. Recent ST evaluation with no overt signs of aspiration recommendations of soft diet/chopped meats, however patient with no appetite and very minimal intake. CT of abdomen today shows possible mild ileus with no bowel obstruction. Discussed PEG placement as an option for optimal nutrition and family patient to discuss. Discussed with Dr. Arias and he is to evaluate later this afternoon and make further recommendations. Plan an addendum to follow by Dr. Arias Current Visit: Yes Gastroenterology - PN: Subj Interval history: CC: Failure to thrive/Protein calorie malnutrition Pt is seen awake, alert, family at bedside. She had a restless night until earlier this morning when she finally went to sleep. Family states they do not want to proceed just yet with a PEG tube due to feeling like they need more time to decide. States she ate a little more on yesterday afternoon. Pt is not to be transferred over the weekend to a facility, due to placement is still pending. Discussed with pt niece and pt sister that we will continue to monitor her intake over the weekend and will reevaluate on Saturday. We will hold her NPO Saturday night just in case family does decide to proceed contingent on her progression over the weekend. Abdomen is soft, tender to palpation. ROS: Denies SOB or chest pain Exam (Progress Note) - Constitutional Vitals: Period Temp Pulse Resp BP Sys/Echeverria Pulse Ox Last 24 Hr 97.3 F-97.7 F 90-100 16-18 100-127/56-70 95-99 General appearance: normal weight, no acute distress - Head Head exam: Present: normal inspection, normocephalic - Eye Eye exam: Present: other (lids and conjunctiva unremarkable). Absent: scleral icterus - ENT ENT exam: Present: normal exam, normal oropharynx - Neck Neck exam: Present: normal inspection - Respiratory Respiratory exam: Present: clear to auscultation bilaterally. Absent: rales, rhonchi, wheezes - Cardiovascular Cardiovascular exam: Present: regular rate and rhythm. Absent: diastolic murmur , JVD, systolic murmur - GI/Abdominal GI/Abdominal exam: Present: normal bowel sounds, tenderness, soft. Absent: ascites, distended, mass, organomegaly - Extremities Exam Extremities exam: Present: normal inspection, full ROM - Back Exam Back exam: Present: normal inspection - Neurological Exam Neurological exam: Present: alert, oriented X3 - Psychiatric Psychiatric exam: Present: normal affect, normal mood - Skin Skin exam: Present: normal color, warm, dry Results - Labs CBC & BMP: 06/22/16 03:55 06/22/16 03:55 Lab Results: I have reviewed the past 24 hour labs
[2016-06-22] MEDS: ENOXAPARIN 40 MG/0.4 ML SYRINGE SUBCUT SCH (10:03)
[2016-06-22] MEDS: DESITIN 4OZ/NYSTATIN 15 GRAM MIXTURE PASTE TOP SCH ×2 (10:03→20:31)
[2016-06-22] MEDS: FUROSEMIDE 40 MG/4 ML VIAL IV SCH (10:03)
[2016-06-22] MEDS: ATORVASTATIN 10 MG TABLET PO SCH (10:04)
--- NOTE | 2016-06-22 11:54 | Hospitalist Progress Note ---
Assessment and Plan (1) Toxic megacolon Status: Acute Assessment and plan: Status post complete colectomy with end ileostomy with ISAAC drain Current Visit: Yes (2) Acute posthemorrhagic anemia Status: Acute Assessment and plan: hgb stable Current Visit: Yes (3) Septic shock Status: Acute Assessment and plan: lactic acid 1.5, blood cx times two pending, responding to meropenem Current Visit: Yes (4) Leukocytosis Status: Acute Assessment and plan: repeat blood cultures pending, white count improving on meropenem. Most likely source is colitis Current Visit: Yes (5) Volume overload Status: Acute Assessment and plan: BNP 19, DC Lasix after today Current Visit: Yes (6) Confusion Status: Acute Assessment and plan: Blood sugars better today. Family still refuses Dobbhoff tube. They have not agreed to PEG tube at this point. Current Visit: Yes Hospitalist: Subjective Interval history: Had long discussion with the family last night including her sister who is the decision-maker about whether to do a PEG tube. Patient has advanced age and has already undergone a lot of pain so at what point do we stop pushing her and make her comfortable. She will get dehydrated without a peg but her quality of life is poor. Family disappointed that [facility] will not pay for LTACH. Patient less confused today and eating alittle more. We will hold off on peg for now. There are several nursing homes interested in taking her. WBC is better today, but I want to check her for c. DIFF [place]. I asked for her fluids to be discontinued several days ago. They were stopped today. 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 Ileostomy putting out stool Ext-[less edema] Neuro [Motor 4/5], [less confused psych [depressed mood and affect] General [no acute distress] Results - Labs CBC & BMP: 06/22/16 03:55 06/22/16 03:55 Lab Results: I have reviewed the past 24 hour labs Labs: Repeat blood cultures pending, urine culture negative, stool for C. difficile negative - Diagnostic Findings Procedure: Ultrasound: report reviewed by me (Normal echo EF of 65%) Quality Measures - VTE Deep Vein Thrombosis/Pulmonary Embolism Present on Admission: No Contraindication to Pharmacological VTE Prophylaxis: Coagulopathy
--- NOTE | 2016-06-22 13:02 | Event Note ---
General Surgery Progress Note Chief complaint This patient is a 89-year-old woman admitted with septic shock with peritonitis and toxic megacolon treated with staged complete colectomy and end ileostomy with drainage of rectum using a mushroom catheter on 06/12/2016 and 06/14/2016 Interval history The patient is clinically improving. Her ostomy is working well. Increased oral intake somewhat - family is also encouraging meal supplements. No abd pain or fevers. No N/V with eating. Physical exam Afebrile, VSS, borderline tachycardic CTAB RRR The abdomen is soft and appropriately tender. BS present. The midline wound is clean with no evidence of infection of necrotic tissue. The ISAAC drain bulb with cloudy serous fluid. The rectal drain has is clamped. The ileostomy is productive of liquid stool. ISAAC output 260 cc yesterday; 260cc since midnight Labs WBC decreased 14k from 22k H/H stable Imaging CT scan abd/pelvis with oral contrast: likely residual colitis involving rectum ; no abscess formation Assessment and plan Continue wound care once daily to the midline wound - wet to dry. Continue ISAAC drain - output is increased this am - monitor closely. Advance diet as tolerated - encourage intake. Family has declined Dubbhoff. Continue DVT chemoprophylaxis. Continue PPI daily. F/u rec on chart.
[2016-06-23] MEDS: MEROPENEM 1,000 MG in SODIUM CHLORIDE 0.9% 100 ML IV SCH ×3 (03:49→20:11)
[2016-06-23] MEDS: INSULIN LISPRO 100 UNIT/ML SUBCUT SCH ×5 (03:49→20:13)
[2016-06-23] MEDS: metroNIDAZOLE INJ 500 MG in PREMIX 1 EACH IV SCH ×3 (05:34→22:15)
[2016-06-23] MEDS: FAMOTIDINE 20 MG/2 ML VIAL IV SCH ×2 (05:34→17:23)
[2016-06-23] MEDS: ACETAMINOPHEN 325 MG TABLET PO PRN (06:20)
[2016-06-23 07:07] LABS: Calcium 7.5 MG/DL (8.5-10.1); Osmolality,Calculated 291.8 MOS/KG (273-304); Potassium 3.4 MMOL/L (3.5-5.1)
[2016-06-23] MEDS: DESITIN 4OZ/NYSTATIN 15 GRAM MIXTURE PASTE TOP SCH ×2 (09:41→20:12)
[2016-06-23] MEDS: ATORVASTATIN 10 MG TABLET PO SCH (09:41)
[2016-06-23] MEDS: ONDANSETRON 4 MG/2 ML VIAL IV PRN (09:41)
[2016-06-23] MEDS: ENOXAPARIN 40 MG/0.4 ML SYRINGE SUBCUT SCH ×2 (09:41→10:55)
[2016-06-23] MEDS: FUROSEMIDE 40 MG/4 ML VIAL IV SCH (09:41)
--- NOTE | 2016-06-23 10:05 | Event Note ---
Status post colectomy. Afebrile vital signs stable. Overall she is doing better. She is tolerating her diet but with a poor appetite. No nausea or vomiting. Her abdomen is soft appropriately tender and the stoma is working well with output. Wound is clean. ISAAC drain is cloudy but improving. Continue to encourage diet and ambulation.
--- NOTE | 2016-06-23 10:07 | Hospitalist Progress Note ---
Assessment and Plan (1) Toxic megacolon Status: Acute Assessment and plan: Status post complete colectomy with end ileostomy with ISAAC drain, cont meropenem and flagyl for colitis Current Visit: Yes (2) Acute posthemorrhagic anemia Status: Acute Assessment and plan: hgb stable Current Visit: Yes (3) Septic shock Status: Acute Assessment and plan: Repeat blood cx times negative, continue Flagyl and meropenem Current Visit: Yes (4) Volume overload Status: Acute Assessment and plan: BNP 19, DC Lasix after today Current Visit: Yes (5) Confusion Status: Acute Assessment and plan: Blood sugars better today. Improving Current Visit: Yes Hospitalist: Subjective Interval history: Sister at bedside. Patient more alert this morning per nursing. Patient is sleeping this morning. She wakes up when examined then quickly goes back to sleep. [place] she ate a little bit more. Exam - Constitutional Vitals: Period Temp Pulse Resp BP Sys/Echeverria Pulse Ox Last 24 Hr 97.9 F-98.3 F 91-100 16-20 110-136/53-73 91-99 Exam: Heart Rate-[RRR] Lungs-[CTAB] GI-[good bowel sounds draw frame tender. Ileostomy putting out stool Ext-[less edema] Neuro [sleeping cannot evaluate psych [sleeping cannot evaluate General [no acute distress] Results - Labs CBC & BMP: 06/22/16 03:55 06/23/16 05:20 Lab Results: I have reviewed the past 24 hour labs Labs: Negative for C. difficile, blood cultures 2 negative Quality Measures - VTE Deep Vein Thrombosis/Pulmonary Embolism Present on Admission: No Contraindication to Pharmacological VTE Prophylaxis: Coagulopathy Specialty Discharge - Follow Up or Referrals Follow up with: Alfonso Morales MD [Physician] -
[2016-06-23] MEDS ORDERED: POTASSIUM CHLORIDE 20 MEQ TABLET PO ONE (10:08)
[2016-06-24] MEDS: INSULIN LISPRO 100 UNIT/ML SUBCUT SCH ×6 (00:43→21:52)
[2016-06-24] MEDS: MEROPENEM 1,000 MG in SODIUM CHLORIDE 0.9% 100 ML IV SCH ×3 (04:00→19:25)
[2016-06-24] MEDS: metroNIDAZOLE INJ 500 MG in PREMIX 1 EACH IV SCH ×3 (05:25→22:20)
[2016-06-24] MEDS: FAMOTIDINE 20 MG/2 ML VIAL IV SCH ×2 (05:25→17:03)
[2016-06-24 05:53] LABS: Basophils # 0.1 10*3/uL (0.0-0.2); Basophils % 0.6 % (0.0-0.8); Eosinophils % 0.3 % (0.00-10.9); Hemoglobin 10.9 GM/DL (12.0-16.0); Immature Granulocytes % 1.3 %; Immature Granulocytes Absolute 0.15 #; Lymphocytes # 1.3 10*3/uL (1.4-4.0); Lymphocytes % 10.8 % (21.3-54.2); Mean Corpuscular HGB Conc 32.1 GM/DL (32-36); Mean Corpuscular Hemoglobin 29 PG (27-34); Mean Corpuscular Volume 88.8 FL (87-102); Mean Platelet Volume 10.7 FL (9.6-12.0); Monocytes # 1.1 10*3/uL (0.11-0.8); Monocytes % 9.5 % (1.7-12.7); Neutrophils # 9.3 10*3/uL (1.4-7.4); Neutrophils % 77.5 % (38.7-73.9); Platelet Count 485 T/CUMM (130-400); Red Blood Count 3.83 MC/CUMM (3.8-5.5); Red Cell Distribution Width 15.5 % (9.3-17.3); White Blood Count 11.9 T/CUMM (4-12)
[2016-06-24 06:11] LABS: Calcium 7.1 MG/DL (8.5-10.1); Potassium 3.7 MMOL/L (3.5-5.1)
[2016-06-24] MEDS: ATORVASTATIN 10 MG TABLET PO SCH (09:34)
[2016-06-24] MEDS: DESITIN 4OZ/NYSTATIN 15 GRAM MIXTURE PASTE TOP SCH ×2 (09:34→20:20)
[2016-06-24] MEDS: ENOXAPARIN 40 MG/0.4 ML SYRINGE SUBCUT SCH (09:34)
--- NOTE | 2016-06-24 10:12 | Event Note ---
Afebrile vital signs stable. Still with a pretty poor appetite. Abdomen is soft nontender nondistended and wound looks good. Stoma has good output. Labs okay. Will start Clarissa to see if that improves her appetite.
[2016-06-24] MEDS ORDERED: MEGESTROL 400 MG/10 ML UDCUP PO ONE (11:00)
--- NOTE | 2016-06-24 11:47 | Hospitalist Progress Note ---
Assessment and Plan (1) Toxic megacolon Status: Acute Assessment and plan: Status post complete colectomy with end ileostomy with ISAAC drain, white count continues to improve on meropenem and flagyl for colitis Current Visit: Yes (2) Acute posthemorrhagic anemia Status: Acute Assessment and plan: hgb stable Current Visit: Yes (3) Septic shock Status: Acute Assessment and plan: Resolved Current Visit: Yes (4) Volume overload Status: Acute Assessment and plan: Resolved Current Visit: Yes (5) Confusion Status: Acute Assessment and plan: Resolving Current Visit: Yes Hospitalist: Subjective Interval history: Patient more alert and interactive than she has ever been. Looks great even put on lipstick today. She is eating a little bit more. I would not place a PEG tube. She is agreed to drink at least 3 chocolate ensures a day for me. 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 Ileostomy putting out stool Ext-[less edema] Neuro [alert and oriented 1, motor 4/5 psych [pleasant mood and affect General [no acute distress] Results - Labs CBC & BMP: 06/24/16 03:40 06/24/16 03:40 Lab Results: I have reviewed the past 24 hour labs Labs: Repeat blood cultures negative. Quality Measures - VTE Deep Vein Thrombosis/Pulmonary Embolism Present on Admission: No Contraindication to Pharmacological VTE Prophylaxis: Coagulopathy Specialty Discharge - Follow Up or Referrals Follow up with: Alfonso Morales MD [Physician] -
[2016-06-24] MEDS: HYDROmorphone 2 MG/1 ML VIAL IV PRN (19:25)
[2016-06-24] MEDS: MEGESTROL 400 MG/10 ML UDCUP PO SCH (20:20)
[2016-06-25] MEDS: INSULIN LISPRO 100 UNIT/ML SUBCUT SCH ×6 (01:49→22:05)
[2016-06-25] MEDS: MEROPENEM 1,000 MG in SODIUM CHLORIDE 0.9% 100 ML IV SCH ×3 (03:17→21:46)
[2016-06-25] MEDS: metroNIDAZOLE INJ 500 MG in PREMIX 1 EACH IV SCH ×3 (06:00→22:27)
[2016-06-25] MEDS: FAMOTIDINE 20 MG/2 ML VIAL IV SCH ×2 (06:00→17:23)
[2016-06-25 07:36] LABS: Basophils # 0.1 10*3/uL (0.0-0.2); Basophils % 0.7 % (0.0-0.8); Eosinophils # 0.1 10*3/uL (0.0-0.87); Eosinophils % 0.7 % (0.00-10.9); Hematocrit 37.6 VOL% (35.7-47.0); Hemoglobin 11.8 GM/DL (12.0-16.0); Immature Granulocytes % 1.5 %; Immature Granulocytes Absolute 0.16 #; Lymphocytes # 1.4 10*3/uL (1.4-4.0); Lymphocytes % 12.9 % (21.3-54.2); Mean Corpuscular HGB Conc 31.4 GM/DL (32-36); Mean Corpuscular Hemoglobin 28 PG (27-34); Mean Corpuscular Volume 89.1 FL (87-102); Mean Platelet Volume 10.1 FL (9.6-12.0); Monocytes # 1.1 10*3/uL (0.11-0.8); Monocytes % 9.8 % (1.7-12.7); Neutrophils # 8.2 10*3/uL (1.4-7.4); Neutrophils % 74.4 % (38.7-73.9); Platelet Count 513 T/CUMM (130-400); Red Blood Count 4.22 MC/CUMM (3.8-5.5); Red Cell Distribution Width 15.5 % (9.3-17.3)
[2016-06-25 08:04] LABS: Calcium 7.4 MG/DL (8.5-10.1); Osmolality,Calculated 289.8 MOS/KG (273-304)
[2016-06-25 08:08] LABS: Magnesium 2.1 MG/DL (1.8-2.4); Phosphorous 2.1 MG/DL (2.5-4.9); Prealbumin 16.2 MG/DL (20-40)
[2016-06-25] MEDS: HYDROmorphone 2 MG/1 ML VIAL IV PRN (09:06)
[2016-06-25] MEDS: DESITIN 4OZ/NYSTATIN 15 GRAM MIXTURE PASTE TOP SCH ×2 (09:08→22:06)
[2016-06-25] MEDS: ENOXAPARIN 40 MG/0.4 ML SYRINGE SUBCUT SCH (09:08)
--- NOTE | 2016-06-25 10:51 | Gastrointestinal Progress Note ---
Assessment and Plan (1) Failure to thrive Status: Acute Assessment and plan: 06/25-family and patient declined PEG tube at present. Continue diet as ordered. May reconsult GI if patient/family decides to proceed with PEG placement. Plan an addendum to followed by Dr. Arias 06/22-Will hold off on PEG placement at this time. Reevaluate on Saturday. Hold NPO saturday night tentatively in case family decide to proceed. Plan and addendum to follow by DR Arias. 06/21-status post sepsis related to toxic megacolon with peritonitis and exploratory lap with colectomy and colostomy. Recent ST evaluation with no overt signs of aspiration recommendations of soft diet/chopped meats, however patient with no appetite and very minimal intake. CT of abdomen today shows possible mild ileus with no bowel obstruction. Discussed PEG placement as an option for optimal nutrition and family patient to discuss. Discussed with Dr. Arias and he is to evaluate later this afternoon and make further recommendations. Plan an addendum to follow by Dr. Arias Current Visit: Yes Gastroenterology - PN: Subj Interval history: CC: Failure to thrive Patient is seen awake and alert with family at bedside. She was being held n.p.o. since midnight for tentative placement of PEG tube this morning. Patient and family have discussed throughout the weekend and do not wish to proceed at this time. Patient still continues with minimal intake and no appetite however they do not wish for intervention regarding this at this time. Abdomen is soft, nontender. ROS: Denies shortness of breath or chest pain Exam (Progress Note) - Constitutional Vitals: Period Temp Pulse Resp BP Sys/Echeverria Pulse Ox Last 24 Hr 97.0 F-97.9 F 93-100 16-20 104-128/56-73 90-97 General appearance: normal weight, no acute distress - Head Head exam: Present: normal inspection, normocephalic - Eye Eye exam: Present: other (Lids and conjunctive are unremarkable). Absent: scleral icterus - ENT ENT exam: Present: normal exam, normal oropharynx - Neck Neck exam: Present: normal inspection - Respiratory Respiratory exam: Present: clear to auscultation bilaterally. Absent: rales, rhonchi, wheezes - Cardiovascular Cardiovascular exam: Present: regular rate and rhythm. Absent: diastolic murmur , JVD, systolic murmur - GI/Abdominal GI/Abdominal exam: Present: normal bowel sounds, tenderness, soft. Absent: ascites, distended, mass, organomegaly - Extremities Exam Extremities exam: Present: normal inspection, full ROM - Back Exam Back exam: Present: normal inspection - Neurological Exam Neurological exam: Present: alert, oriented X3 - Psychiatric Psychiatric exam: Present: normal affect, normal mood - Skin Skin exam: Present: normal color, warm, dry Results - Labs CBC & BMP: 06/25/16 07:16 06/25/16 07:16 Lab Results: I have reviewed the past 24 hour labs Specialty Discharge - Follow Up or Referrals Follow up with: Alfonso Morales MD [Physician] -
--- NOTE | 2016-06-25 11:00 | Event Note ---
General Surgery Progress Note Chief complaint This patient is a 89-year-old woman admitted with septic shock with peritonitis and toxic megacolon treated with staged complete colectomy and end ileostomy with drainage of rectum using a mushroom catheter on 06/12/2016 and 06/14/2016 Interval history The patient had no events over the weekend. A gastroenterology consult was obtained for a PEG tube with the family and patient declined. She has a better appetite today. Her ISAAC drain output is clearing up. Physical exam Afebrile, vital signs are normal this morning Chest is clear bilaterally Heart is regular with no murmurs The abdomen is soft and appropriately tender. The midline wound is clean with no evidence of infection of necrotic tissue. The ISAAC drain bulb was full with some cloudy serous fluid but it is little more clear than yesterday.. The rectal drain has is clamped. The ileostomy is productive of liquid stool and there is no evidence of leakage. Labs Reviewed, stable Imaging None new Assessment and plan Continue diet as tolerated We will place a wound VAC on the midline wound today Discharge planning is in order to look for a swing bed placement continue anbitiotics for 2 more weeks for possibility of residual colitis/ proctitis in the remaining sigmoid colon/rectum
[2016-06-25] MEDS: ATORVASTATIN 10 MG TABLET PO SCH (11:34)
[2016-06-25] MEDS: MEGESTROL 400 MG/10 ML UDCUP PO SCH ×2 (11:35→22:05)
--- NOTE | 2016-06-25 16:13 | Hospitalist Progress Note ---
Assessment and Plan (1) Acute posthemorrhagic anemia Status: Acute Assessment and plan: H/H stable. Will continue to monitor. Current Visit: Yes (2) Sepsis Status: Acute Assessment and plan: Resolved. No growth on Bcx. Continue Merrem and Flagyl as per #4. Current Visit: Yes (3) Confusion Status: Acute Assessment and plan: Resolving with treatment of acute conditions. Current Visit: Yes (4) Toxic megacolon Status: Acute Assessment and plan: Surgery following. Wound vac placed to midline incision. Drains remain in place as well. Continue antibiotics with Merrem and Flagyl. Resumed diet. Encouraged po intake. Ensure with meals. Plans for swingbed placement at discharge. Case management following. Current Visit: Yes Hospitalist: Subjective Interval history: Patient continues to do well. She complains of dry mouth. She has been NPO since last night as there was some consideration given to PEG tube placement. This, however, has been changed and PEG will not be placed. Family has decided against this for now. Will encourage po intake. Wound vac placed on midline incision. Pt reports some minor discomfort. Otherwise, she has no other complaints. She remains on Meropenem and Flagyl. Exam - Constitutional Vitals: Period Temp Pulse Resp BP Sys/Echeverria Pulse Ox Last 24 Hr 97.0 F-98.3 F 93-95 16-20 104-128/56-73 90-95 General appearance: no acute distress - Head Head exam: Present: normal inspection, normocephalic, atraumatic - Eye Eye exam: Present: EOMI - Respiratory Respiratory exam: Present: clear to auscultation bilaterally. Absent: rales, rhonchi, wheezes - Cardiovascular Cardiovascular exam: Present: regular rate and rhythm (Wound Vac and drains in place. Bowel sounds decreased. Appropriately mildly TTP.) - Extremities Exam Extremities exam: Absent: edema - Neurological Exam Neurological exam: Present: alert, oriented X3, CN II-XII intact - Psychiatric Psychiatric exam: Present: normal affect, normal mood - Skin Skin exam: Present: normal color, warm, dry Results - Labs CBC & BMP: 06/25/16 07:16 06/25/16 07:16 Quality Measures - VTE Deep Vein Thrombosis/Pulmonary Embolism Present on Admission: No Contraindication to Pharmacological VTE Prophylaxis: Coagulopathy Specialty Discharge - Follow Up or Referrals Follow up with: Alfonso Morales MD [Physician] -
[2016-06-25] MEDS: ACETAMINOPHEN 325 MG TABLET PO PRN (22:37)
[2016-06-26] MEDS: INSULIN LISPRO 100 UNIT/ML SUBCUT SCH ×6 (01:32→22:01)
[2016-06-26] MEDS: MEROPENEM 1,000 MG in SODIUM CHLORIDE 0.9% 100 ML IV SCH ×3 (04:00→19:14)
[2016-06-26] MEDS: metroNIDAZOLE INJ 500 MG in PREMIX 1 EACH IV SCH ×3 (05:37→22:01)
[2016-06-26] MEDS: FAMOTIDINE 20 MG/2 ML VIAL IV SCH ×2 (05:37→17:45)
[2016-06-26 06:30] LABS: Basophils # 0.1 10*3/uL (0.0-0.2); Basophils % 0.5 % (0.0-0.8); Eosinophils # 0.1 10*3/uL (0.0-0.87); Eosinophils % 0.6 % (0.00-10.9); Hematocrit 35.4 VOL% (35.7-47.0); Hemoglobin 11.5 GM/DL (12.0-16.0); Immature Granulocytes % 1.8 %; Immature Granulocytes Absolute 0.21 #; Lymphocytes # 1.7 10*3/uL (1.4-4.0); Lymphocytes % 14.9 % (21.3-54.2); Mean Corpuscular HGB Conc 32.5 GM/DL (32-36); Mean Corpuscular Hemoglobin 28 PG (27-34); Mean Corpuscular Volume 85.9 FL (87-102); Mean Platelet Volume 10.3 FL (9.6-12.0); Monocytes # 1.2 10*3/uL (0.11-0.8); Monocytes % 9.9 % (1.7-12.7); Neutrophils # 8.4 10*3/uL (1.4-7.4); Neutrophils % 72.3 % (38.7-73.9); Platelet Count 591 T/CUMM (130-400); Red Blood Count 4.12 MC/CUMM (3.8-5.5); Red Cell Distribution Width 15.3 % (9.3-17.3); White Blood Count 11.7 T/CUMM (4-12)
[2016-06-26] MEDS: MEGESTROL 400 MG/10 ML UDCUP PO SCH ×2 (08:27→20:39)
[2016-06-26] MEDS: ATORVASTATIN 10 MG TABLET PO SCH (08:27)
[2016-06-26] MEDS: ACETAMINOPHEN 325 MG TABLET PO PRN ×2 (08:28→17:45)
[2016-06-26] MEDS: ENOXAPARIN 40 MG/0.4 ML SYRINGE SUBCUT SCH (08:28)
[2016-06-26] MEDS: DESITIN 4OZ/NYSTATIN 15 GRAM MIXTURE PASTE TOP SCH ×2 (08:29→20:39)
--- NOTE | 2016-06-26 08:56 | Hospitalist Progress Note ---
Assessment and Plan (1) Toxic megacolon Status: Acute Assessment and plan: Presumptive underlying ischemic colitis. Right colectomy with ileostomy construction as a stage procedure. Secondary rise in white blood cell count with possible residual colitis/proctitis clinically responding to IV antibiotic therapy. Current Visit: Yes Hospitalist: Subjective Interval history: 89-year-old female who developed toxic megacolon/ischemic colitis requiring total colectomy with end ileostomy June 14. She had preoperative peritonitis with systemic inflammatory response syndrome associated with acute kidney injury and hypotension. She continues to be markedly debilitated and limited in any activity. Initial plans for the were delayed due to rising white count associated with CT evidence of inflammatory changes persist in the colon remnant. Patient was placed on broad-spectrum antibiotics and has resolved her leukocytosis. Her vital signs are stable her capillary blood glucose has been adequate and hemoglobin has stabilized. Her cultures are negative to date and she continues on IV antibiotics with wound VAC in place. Exam - Constitutional Vitals: Period Temp Pulse Resp BP Sys/Echeverria Pulse Ox Last 24 Hr 97.4 F-98.3 F 92-97 16-20 112-152/48-75 94-97 General appearance: under weight - Respiratory Respiratory exam: Present: clear to auscultation bilaterally. Absent: rales, rhonchi, wheezes - Cardiovascular Cardiovascular exam: Present: regular rate and rhythm - GI/Abdominal GI/Abdominal exam: Present: normal bowel sounds. Absent: ascites, distended, tenderness - Extremities Exam Extremities exam: Absent: edema - Neurological Exam Neurological exam: Present: alert, oriented X3 Results - Labs CBC & BMP: 06/26/16 05:45 06/25/16 07:16 Quality Measures - VTE Deep Vein Thrombosis/Pulmonary Embolism Present on Admission: No Contraindication to Pharmacological VTE Prophylaxis: Coagulopathy Specialty Discharge - Follow Up or Referrals Follow up with: Alfonso Morales MD [Physician] -
--- NOTE | 2016-06-26 11:44 | Event Note ---
General Surgery Progress Note Chief complaint This patient is a 89-year-old woman admitted with septic shock with peritonitis and toxic megacolon treated with staged complete colectomy and end ileostomy with drainage of rectum using a mushroom catheter on 06/12/2016 and 06/14/2016 Interval history No events overnight. Patient tolerated some milkshake yesterday but still has poor p.o. intake overall. No fevers. Ostomy is working well. Wound VAC was placed on the abdomen yesterday. Physical exam Afebrile, vital signs are normal this morning Chest is clear bilaterally Heart is regular with no murmurs The abdomen is soft and appropriately tender. Wound VAC is in place and has a good seal. The ISAAC drain is serosanguineous. The rectal drain is clamped. Labs Reviewed, stable, white blood cell count is normal Imaging None new Assessment and plan Diet as tolerated Remove rectal drain today Continue ISAAC drain and wound VAC Continue antibiotics
[2016-06-27] MEDS: INSULIN LISPRO 100 UNIT/ML SUBCUT SCH ×6 (00:19→20:29)
[2016-06-27] MEDS: MEROPENEM 1,000 MG in SODIUM CHLORIDE 0.9% 100 ML IV SCH ×3 (03:44→19:34)
[2016-06-27] MEDS: FAMOTIDINE 20 MG/2 ML VIAL IV SCH ×2 (05:58→17:47)
[2016-06-27] MEDS: metroNIDAZOLE INJ 500 MG in PREMIX 1 EACH IV SCH ×3 (06:01→21:36)
--- NOTE | 2016-06-27 08:20 | Hospitalist Progress Note ---
Assessment and Plan (1) Toxic megacolon Status: Acute Assessment and plan: Presumptive underlying ischemic colitis. Right colectomy with ileostomy construction as a staged procedure. Secondary rise in white blood cell count with possible residual colitis/proctitis clinically responding to IV antibiotic therapy. Current Visit: Yes Hospitalist: Subjective Interval history: 89-year-old female who developed toxic megacolon associated with ischemic colitis requiring subtotal colectomy with ileostomy June 14. She had preoperative peritonitis with systemic inflammatory response syndrome associated with acute kidney injury and hypotension. She developed a predischarge increase in her white blood cell count with a CT scan demonstrating inflammatory changes in the colon remnant. She was placed on present broad-spectrum antibiotics with resolution of her leukocytosis. She has remained afebrile. Wound VAC is been placed. Hemoglobin hematocrit levels have responded to transfusion. She continues to be severely debilitated. Exam - Constitutional Vitals: Period Temp Pulse Resp BP Sys/Echeverria Pulse Ox Last 24 Hr 97.5 F-98.3 F 94-104 16-20 107-122/49-64 93-100 General appearance: under weight - Respiratory Respiratory exam: Present: clear to auscultation bilaterally. Absent: rales, rhonchi, wheezes - Cardiovascular Cardiovascular exam: Present: regular rate and rhythm - GI/Abdominal GI/Abdominal exam: Present: normal bowel sounds. Absent: distended, tenderness - Extremities Exam Extremities exam: Absent: edema - Neurological Exam Neurological exam: Present: alert, oriented X3 Results - Labs CBC & BMP: 06/26/16 05:45 06/25/16 07:16 Quality Measures - VTE Deep Vein Thrombosis/Pulmonary Embolism Present on Admission: No Contraindication to Pharmacological VTE Prophylaxis: Coagulopathy Specialty Discharge - Follow Up or Referrals Follow up with: Alfonso Morales MD [Physician] -
[2016-06-27] MEDS: MEGESTROL 400 MG/10 ML UDCUP PO SCH ×2 (08:59→20:54)
[2016-06-27] MEDS: ENOXAPARIN 40 MG/0.4 ML SYRINGE SUBCUT SCH (08:59)
[2016-06-27] MEDS: ATORVASTATIN 10 MG TABLET PO SCH (09:02)
[2016-06-27] MEDS: DESITIN 4OZ/NYSTATIN 15 GRAM MIXTURE PASTE TOP SCH ×2 (09:02→21:03)
--- NOTE | 2016-06-27 10:44 | Event Note ---
General Surgery Progress Note Chief complaint This patient is a 89-year-old woman admitted with septic shock with peritonitis and toxic megacolon treated with staged complete colectomy and end ileostomy with drainage of rectum using a mushroom catheter on 06/12/2016 and 06/14/2016 Interval history The patient is stable. No changes overnight. Her rectal drain was removed this morning. Labs are stable. She is in good spirits and she is eating some. Physical exam Afebrile, vital signs are normal this morning Chest is clear bilaterally Heart is regular with no murmurs The abdomen is soft and appropriately tender. Wound VAC is in place and has a good seal. The ISAAC drain is serosanguineous. The rectal drain was removed. Labs None new Imaging None new Assessment and plan Diet as tolerated Continue ISAAC drain and wound VAC Continue antibiotics Discharge planning
[2016-06-28] MEDS: INSULIN LISPRO 100 UNIT/ML SUBCUT SCH ×5 (00:42→17:00)
[2016-06-28] MEDS: MEROPENEM 1,000 MG in SODIUM CHLORIDE 0.9% 100 ML IV SCH ×2 (03:56→11:44)
[2016-06-28] MEDS: FAMOTIDINE 20 MG/2 ML VIAL IV SCH (05:35)
[2016-06-28] MEDS: metroNIDAZOLE INJ 500 MG in PREMIX 1 EACH IV SCH (05:37)
--- NOTE | 2016-06-28 08:02 | Hospitalist Progress Note ---
Assessment and Plan (1) Toxic megacolon Status: Acute Assessment and plan: Presumptive underlying ischemic colitis. Right colectomy with ileostomy construction as a staged procedure. Secondary rise in white blood cell count with possible residual colitis/proctitis clinically responding to IV antibiotic therapy. Current Visit: Yes Hospitalist: Subjective Interval history: 89-year-old female developed toxic megacolon with presumed ischemic colitis and peritonitis requiring subtotal colectomy with ileostomy. Surgery was done in stages with a final surgery on 14 June her hypotension and systemic inflammatory response syndrome is resolved and hemoglobin has stabilized post transfusion. Initial plans for discharge were terminated when the patient developed increased white count with a CT scan showing inflammatory changes in the colon red rimmed she was placed on broad-spectrum antibiotic coverage with resolution of the leukocytosis. She has remained afebrile. She is very weak and is anticipated to require an extensive period of rehabilitation. She seems to be eating well without nausea. Vital signs are stable and she is afebrile. Exam - Constitutional Vitals: Period Temp Pulse Resp BP Sys/Echeverria Pulse Ox Last 24 Hr 97.6 F-98.5 F 88-94 15-20 107-133/58-74 95-98 General appearance: under weight - Respiratory Respiratory exam: Present: clear to auscultation bilaterally. Absent: rales, rhonchi, wheezes - Cardiovascular Cardiovascular exam: Present: regular rate and rhythm - GI/Abdominal GI/Abdominal exam: Present: normal bowel sounds. Absent: distended - Extremities Exam Extremities exam: Absent: edema - Neurological Exam Neurological exam: Present: alert, oriented X3 Results - Labs CBC & BMP: 06/26/16 05:45 06/25/16 07:16 Quality Measures - VTE Deep Vein Thrombosis/Pulmonary Embolism Present on Admission: No Contraindication to Pharmacological VTE Prophylaxis: Coagulopathy Specialty Discharge - Follow Up or Referrals Follow up with: Alfonso Morales MD [Physician] -
[2016-06-28] MEDS: ATORVASTATIN 10 MG TABLET PO SCH (09:30)
[2016-06-28] MEDS: ACETAMINOPHEN 325 MG TABLET PO PRN ×3 (09:30→13:00)
[2016-06-28] MEDS: MEGESTROL 400 MG/10 ML UDCUP PO SCH (09:30)
[2016-06-28] MEDS: ENOXAPARIN 40 MG/0.4 ML SYRINGE SUBCUT SCH (09:30)
[2016-06-28] MEDS: DESITIN 4OZ/NYSTATIN 15 GRAM MIXTURE PASTE TOP SCH (09:31)
[2016-06-28] MEDS ORDERED: TUBERCULIN SKIN TEST 0.1 ML SYRINGE INTRADERM ONE (10:04)
--- NOTE | 2016-06-28 10:05 | Case Mgmt Physician Query Form ---
TB Signs and Symptoms Screening ([place]) INSTRUCTIONS: To be completed annually on residents/staff with a significant Tuberculin Skin Test (TST) upon admission/hire or a prior significant TST. To be completed on all staff at hire. Please respond to each listed symptom with an (X) in either the "YES" or "NO" box. Do you currently have any of the following symptoms: YES NO ( ) (x ) A cough If yes, is it: ( ) Productive ( ) Non- productive ( ) (x ) Hemoptysis (spitting up blood) ( ) (x ) Chest pains ( ) (x ) Weight Loss ( ) (x ) Fever ( ) (x ) Night Sweats ( ) (x ) Weakness ( ) (x ) Loss of Appetite ( ) (x ) Difficulty Breathing If you answered YES" to any of the above questions, how long have symptoms been present? Comments: If you have any questions, please contact me. Thank you, Holly Alexander RN, Office : [phone] Email : [email or web address]
--- NOTE | 2016-06-28 13:48 | Discharge Summary ---
Hospital Course - Hospital Course Hospital Course: 89-year-old female developed toxic megacolon in association with ischemic colitis requiring right colectomy ileostomy construction. This procedure was performed in stages and completed on 14 June. Initial discharge was delayed due to the presence of a rising white count with CT imaging suggesting residual inflammation in the colon remnant. She has responded to course of antibiotic therapy. She remains with profound weakness reflective of her acute medical condition and pre-morbid health status. She is for referral for rehabilitation. Diagnosis - Discharge Diagnosis (1) Toxic megacolon Status: Acute Specialty Discharge - Follow Up or Referrals Follow up with: Alfonso Morales MD [Physician] - Discharge Plan - Discharge Data Disposition: Disch/Xfer-Ip Rehab Fac Condition at Discharge: Stable Discharge Diet: advance to your usual diet Activity: as per physical therapy - Discharge Medications New Dextrose 50% [D50] 25 gm IV PRN PRN #0 vial PRN Reason: Hypoglycemia with IV access Glucagon 1 mg IM PRN PRN #0 vial PRN Reason: Hypoglycemia w/o IV access Ondansetron Inj [Zofran Inj] 4 mg IV Q4H PRN #0 vial PRN Reason: Nausea Meropenem [Merrem] 1,000 mg IV Q8H vial metroNIDAZOLE TAB [Flagyl Cap/Tab] 500 mg PO Q8HR tablet Acetaminophen Tab [Tylenol Tab] 325 mg PO Q4H PRN #0 tablet PRN Reason: fever, headache/body aches Insulin Lispro [HumaLOG] 0 unit SUBCUT Q4H unit Megestrol Liquid [Megace Liquid] 400 mg PO BID Continue Atorvastatin [Lipitor] 10 mg PO DAILY Discontinued Benazepril [Lotensin] 10 mg PO DAILY Fluconazole [Diflucan] 200 mg PO DAILY Omeprazole 40 mg PO DAILY Fondaparinux [Arixtra] 2.5 mg SUBCUT Q24H - Follow Up or Referral Follow Up: Alfonso Morales MD [Physician] - - Forms/Instructions Exam - Constitutional Vitals: Period Temp Pulse Resp BP Sys/Echeverria Pulse Ox Last 24 Hr 97.6 F-98.5 F 88-104 15-20 105-133/57-74 95-98 Discharge Results Procedures and tests throughout hospitalization: Pending Orders 06/14/16 03:24 Red Blood Cells Leuko Red Routine 06/29/16 04:00 BMP [Basic Metabolic Panel] IN AM CBC [Comp Blood Count Auto Diff] IN AM Labs on day of discharge: Labs from last 24 hours 06/28/16 06/28/16 06/27/16 11:07 03:39 23:38 POC Glucose 183 H 80 169 H 06/27/16 06/27/16 20:25 17:13 POC Glucose 137 H 130 H DS: Provider Date of admission: 06/12/16 23:04 Primary care physician: . No PCP Attending physician on admission: Cassia Larsen MD Consults: 06/13/16 00:11 Consult to Wound Care - [place] [CONS] Routine Reason for Wound Care: Wound Care Management Consult Comment: wound vac to abdomen 06/13/16 01:00 Consult to Physician [CONS] Routine Comment: vent manager management Provider: Sampson Ortiz Consulting Provider Notified: Yes Consult to Specialist Group: Pulmonology When should Consulting Provider be notified: In am Person Notified: Dr Ortiz Date Notified: 06/13/16 Time Notified: 07:06 Consult Notification Comment: notified of consult 06/13/16 01:47 Consult to Pastoral Services [CONS] Routine Comment: Pastoral Screen: Request Audio Installer Visit Pastoral Screen Source of Request: Patient 06/13/16 10:08 Consult to Pharmacy [CONS] Routine Reason for Pharmacy Consult: Adjust Meds Renal Funct 06/13/16 11:16 Consult to Dietitian [CONS] Routine Reason for Dietitian: TPN/PPN-Initiate/Manage 06/13/16 16:53 Consult to Anesthesiology [CONS] Routine Consulting Provider: Reason for Anesthesiology: Pre-op Clearance 06/15/16 08:52 Consult to Wound Care [facility] [CONS] Routine Reason for Wound Care: Wound Care Management Consult Comment: ostomy care/teaching 06/16/16 08:18 Consult to Dietitian [CONS] Routine Reason for Dietitian: TF-Initiate/Manage 06/16/16 08:19 PT [Consult to Physical Therapy] [CONS] Routine Reason for Physical Therapy: Evaluate and Treat Consult Comment: pt had right hip replacement 3 weeks ago, now postop colectomy 06/19/16 10:52 Consult to Case Mgmt/Social Srvs [CONS] Routine Reason for Case Mgmt/Social Srvs: LTAC 06/21/16 11:24 Consult to Physician [CONS] Routine Comment: peg tube Consulting Provider: Jose Arias Consulting Provider Notified: Yes When should Consulting Provider be notified: Now Person Notified: eduardo alonzo Date Notified: 06/21/16 Time Notified: 12:37 06/21/16 11:51 Consult to Dietitian [CONS] Routine Reason for Dietitian: TF-Initiate/Manage Discharging clinician: Roshan Gardiner MD Expected date of discharge: 06/28/16
[2016-06-28] MEDS ORDERED: metroNIDAZOLE 500 MG TABLET PO SCH (14:00)
--- NOTE | 2016-06-28 16:09 | Event Note ---
General Surgery Progress Note Chief complaint This patient is a 89-year-old woman admitted with septic shock with peritonitis and toxic megacolon treated with staged complete colectomy and end ileostomy with drainage of rectum using a mushroom catheter on 06/12/2016 and 06/14/2016 Interval history No changes Physical exam Afebrile, vital signs are normal this morning Chest is clear bilaterally Heart is regular with no murmurs The abdomen is soft and appropriately tender. Wound VAC is in place and has a good seal. The ISAAC drain is serosanguineous. Labs None new Imaging None new Assessment and plan Diet as tolerated Continue ISAAC drain Change wound vac today Continue antibiotics Discharge planning
[2016-06-28 16:16] VITALS: BP 117/60
[2016-06-28] MEDS ORDERED: CIPROFLOXACIN 500 MG TABLET PO SCH (21:00)
--- NOTE | 2016-07-04 15:22 | Physician Query Form ---
CLICK EDIT DOCUMENT TO SELECT QUERY ANSWER --> OK --> SIGN Rossy Bhatt RN, CCDS Certified Clinical Electron Beam Photo Mask Technician W) [phone] (f) [phone] [email or web address]: Make your selection(s) from the choices in EACH section by typing an "x" and enter comments in the comment section. Please use your independent medical judgment in providing your response. This request does not imply that any particular answer is desired or expected. CLINICAL INDICATORS: (Providers should not edit this section) Patient has documented "developed a urinary tract infection due to Cheng. I started her back on Rocephin IV cultures are pending." UTI culture was negative with no growth at 48 hours, max temp noted is 99.9 Please clarify the following: ( x) Cheng associated UTI was monitored, evaluated, and/or treated and is a confirmed diagnosis ( ) Cheng associated UTI was ruled out ( ) Other, please specify: ( ) Clinically unable to determine COMMENTS: Use of terms such as suspected, likely, or probable (associated with a specific diagnosis that is being evaluated, monitored, or treated as if it exists) are acceptable and can be restated in the discharge summary if not ruled out. [facility]
== END 2016-06-28 16:40 | disposition swing bed (61) | DRG 853 ==
LOC: N.ED 21:12 → SUATTDRO 23:04 → N.EDINP 23:04 → N.ICU 06-13 00:43 → N.3E 06-18 12:29
PROVIDERS: ADMIT Internal Medicine; ATTEND Internal Medicine Cardiovascular Disease